=== PATIENT | male | born 1975 | race American Indian/Alaskan Native ===

== ENCOUNTER 2017-03-17 15:42 | Emergency (ER) | payer OTHER ==
[2017-03-17 15:49] VITALS: TEMP 98.2; O2SAT 100; BMI 22.1
[2017-03-17] MEDS ORDERED: Sodium Chloride 0.9% 1,000 ML IV STA (15:58)
--- NOTE | 2017-03-17 16:06 | ED PDOC ---
Arrival/HPI - General Chief Complaint: Abdominal Pain Time Seen by Provider: 03/17/17 15:58 Historian: Patient - History of Present Illness Narrative History of Present Illness (Text): 03/17/17 16:02 A 41 year old male with no significant past medical history, presents tot he emergency department with a complaint of epigastric and left sided abdominal pain with multiple episodes of non-bilious, non-bloody vomiting. The patient states that his symptoms began last night after eating a meal from a corner stone. He states that it consisted of chicken salad and fried chicken, which he then washed down with strong liquor. The patient states that he cannot pass any stools. The patient denies fevers, chills, headache, dizziness, chest pain, shortness of breath, dyspnea on exertion, cough,nausea, back pain, neck pain, urinary changes, or any other complaint. Time/Duration: Other (Last Night) Symptom Onset: Sudden Symptom Course: Unchanged Activities at Onset: Rest, Light Context: Home Past Medical History - Provider Review Nursing Documentation Reviewed: Yes - Cardiac Hx Cardiac Disorders: No - Pulmonary Hx Respiratory Disorders: No - Neurological Hx Neurological Disorder: No - HEENT Hx HEENT Disorder: No - Renal Hx Renal Disorder: No - Endocrine/Metabolic Hx Endocrine Disorders: No - Hematological/Oncological Hx Blood Disorders: No - Integumentary Hx Dermatological Disorder: No - Musculoskeletal/Rheumatological Hx Musculoskeletal Disorders: No - Gastrointestinal Hx Gastrointestinal Disorders: No - Genitourinary/Gynecological Hx Genitourinary Disorders: No - Psychiatric Hx Psychophysiologic Disorder: No Hx Depression: Yes Hx Emotional Abuse: No Hx Physical Abuse: No Hx Substance Use: Yes (CANNABIS) - Anesthesia Hx Anesthesia: No - Suicidal Assessment Feels Threatened In Home Enviroment: No Family/Social History - Physician Review Nursing Documentation Reviewed: Yes Family/Social History: No Known Family HX Smoking Status: Current Some Days Smoker Hx Alcohol Use: Yes (SOCIAL) Hx Substance Use: Yes (CANNABIS) Allergies/Home Meds Allergies/Adverse Reactions: Allergies No Known Allergies Allergy (Verified 12/08/11 11:38) Home Medications: Home Meds Medication Instructions Recorded Confirmed PARoxetine [Paxil] 5 mg PO DAILY 03/17/17 03/17/17 Review of Systems - Physician Review All systems were reviewed & negative as marked: Yes - Review of Systems Constitutional: absent: Fevers, Night Sweats Eyes: Normal ENT: absent: Sore Throat Respiratory: absent: SOB Cardiovascular: absent: Chest Pain, MOLINA Gastrointestinal: Abdominal Pain (epigastric, left sided), Stool Changes (Can not pass any stools), Vomiting (non-bilous/bloody) Genitourinary Male: absent: Urinary Output Changes Musculoskeletal: absent: Back Pain, Neck Pain Skin: Normal Neurological: absent: Headache, Dizziness Endocrine: Normal Hemo/Lymphatic: Normal Psychiatric: Normal Physical Exam Vital Signs Reviewed: Yes Vital Signs Temp Pulse Resp BP Pulse Ox 03/17/17 15:48 98.2 F 73 18 116/66 100 Temperature: Afebrile Blood Pressure: Normal Pulse: Regular Respiratory Rate: Normal Appearance: Positive for: Well-Appearing, Non-Toxic, Comfortable Pain Distress: None Mental Status: Positive for: Alert and Oriented X 3 - Systems Exam Head: Present: Atraumatic, Normocephalic Pupils: Present: PERRL Extroacular Muscles: Present: EOMI Conjunctiva: Present: Normal Mouth: Present: Moist Mucous Membranes Neck: Present: Normal Range of Motion Respiratory/Chest: Present: Clear to Auscultation, Good Air Exchange. No: Respiratory Distress, Accessory Muscle Use Cardiovascular: Present: Regular Rate and Rhythm, Normal S1, S2. No: Murmurs Abdomen: Present: Tenderness (Epigastric, supraumbilical, LUQ tenderness.). No : Normal Bowel Sounds (hyperchoic bowel sounds) Back: Present: Normal Inspection Upper Extremity: Present: Normal Inspection. No: Cyanosis, Edema Lower Extremity: Present: Normal Inspection. No: Edema Neurological: Present: GCS=15, CN II-XII Intact, Speech Normal, Motor Func Grossly Intact, Normal Sensory Function, Normal Cerebellar Funct, Norm Deep Tendon Reflexes, Gait Normal, Memory Normal, Normal 2Pt Descrimination, Other Skin: Present: Warm, Dry, Normal Color. No: Rashes Psychiatric: Present: Alert, Oriented x 3, Normal Insight, Normal Concentration Medical Decision Making ED Course and Treatment: 03/17/17 16:08 Impression: A 41 year old male presents tot he emergency department with epigastric and left sided abdominal pain and multiple episodes of non-bilious, non-bloody vomiting. Plan: -- Pepcid, Toradol, Zofran, IV Fluids -- Labs -- Reassess and disposition Prior Visits: Notes and results from previous visits were reviewed. Patient was last seen in the emergency department on 12/08/11. The patient was seen for a lower extremity injury. The patient was discharged home. Progress Notes: 03/17/17 18:36 serial bowel exasm biengn, po challenge passed/diet counsled, feling better. will be discharged on dietinstructions pepcid/reglan /pmd f/u prn - Lab Interpretations Lab Results: 03/17/17 16:40 03/17/17 16:40 Lab Results 03/17/17 16:40: Sodium 139, Potassium 3.7, Chloride 100, Carbon Dioxide 30, Anion Gap 12, BUN 14, Creatinine 1.0, Est GFR ( Amer) > 60, Est GFR (Non- Af Amer) > 60, Random Glucose 81, Calcium 9.5, Total Bilirubin 1.5 H, AST 73 H, ALT 44, Alkaline Phosphatase 71, Total Protein 7.8, Albumin 4.5, Globulin 3.2, Albumin/Globulin Ratio 1.4, Lipase 54 03/17/17 16:40: PT 12.8 H, INR 1.17 H, APTT 27.7 03/17/17 16:40: WBC 7.3, RBC 4.15, Hgb 13.8 L, Hct 40.0 L, MCV 96.4, MCH 33.3, MCHC 34.5, RDW 13.2, Plt Count 172, MPV 10.3, Gran % 69.2 H, Lymph % (Auto) 23.0 , [place] % (Auto) 7.4 H, Eos % (Auto) 0.3 L, Baso % (Auto) 0.1, Gran # 5.01, Lymph # 1.7, [place] # 0.5, Eos # 0.0, Baso # 0.01 I have reviewed the lab results: Yes - Medication Orders Current Medication Orders: Discontinued Medications Famotidine (Pepcid) 20 mg IVP STAT STA Stop: 03/17/17 15:59 Last Admin: 03/17/17 16:45 Dose: 20 mg IVP Administration Document 03/17/17 16:45 HI (Rec: 03/17/17 16:45 IN [id number]) Charges for Administration # of IVP Administrations 1 Sodium Chloride (Sodium Chloride 0.9%) 1,000 mls @ 1,000 mls/hr IV .Q1H STA Stop: 03/17/17 16:57 Last Admin: 03/17/17 16:46 Dose: 1,000 mls/hr eMAR Start Stop Document 03/17/17 16:46 HI (Rec: 03/17/17 16:46 [id number] Intravenous Solution Start Date 03/17/17 Start Time 16:46 Ketorolac Tromethamine (Toradol) 15 mg IVP STAT STA Stop: 03/17/17 16:12 Last Admin: 03/17/17 16:46 Dose: 15 mg MAR Pain Assessment Document 03/17/17 16:46 HI (Rec: 03/17/17 16:46 [id number] Pain Reassessment Is this a pain reassessment? No Sleep Is patient sleeping during reassessment? No Presence of Pain Presence of Pain Yes Location Pain Location Body Site Abdomen IVP Administration Document 03/17/17 16:46 HI (Rec: 03/17/17 16:46 [id number] Charges for Administration # of IVP Administrations 1 Ondansetron HCl (Zofran Inj) 4 mg IVP STAT STA Stop: 03/17/17 15:59 Last Admin: 03/17/17 16:46 Dose: 4 mg IVP Administration Document 03/17/17 16:46 HI (Rec: 03/17/17 16:46 [id number]) Charges for Administration # of IVP Administrations 1 - Scribe Statement The provider has reviewed the documentation as recorded by the Jennifer Eldridge Provider Scribe Attestation: All medical record entries made by the Scribe were at my direction and personally dictated by me. I have reviewed the chart and agree that the record accurately reflects my personal performance of the history, physical exam, medical decision making, and the department course for this patient. I have also personally directed, reviewed, and agree with the discharge instructions and disposition. Disposition/Present on Arrival - Present on Arrival Any Indicators Present on Arrival: No History of DVT/PE: No History of Uncontrolled Diabetes: No Urinary Catheter: No History of Decub. Ulcer: No History Surgical Site Infection Following: None - Disposition Have Diagnosis and Disposition been Completed?: Yes Diagnosis: Acute gastroenteritis Disposition: HOME/ ROUTINE Disposition Time: 18:30 Patient Plan: Discharge Patient Problems: Current Active Problems Problem Status Onset Acute gastroenteritis Acute Condition: GOOD Discharge Instructions (ExitCare): Gastroenteritis (DC), Gastroenteritis (GEN) Print Language: MARSHALLESE Additional Instructions: Please advance your diet slowly for the first 2-3 days avoid large meals/ meaty/ greasy meals/chocoalte/greasy foods/chocolate/fried foods eat simple bland foods such as bannas/cream of cereals/papaya/toast/crackers/ lots of water/lots of water/lots of water/ fluids such as herbal teas likle julisa/peppermint . and take the medicines as prescribed. Prescriptions: Famotidine [Pepcid] 20 mg PO BID PRN #20 tab PRN Reason: dysepsia Metoclopramide [Reglan] 10 mg PO Q8 PRN #10 tab PRN Reason: Nausea/Vomiting Forms: [facility] [facility] (Kiswahili)
[2017-03-17 16:57] LABS: BASO # 0.01 K/mm3 (0.0-2.0); BASO % 0.1 % (0.0-3.0); EOS % 0.3 % (1.5-5.0); GRAN # 5.01 (1.4-6.5); GRAN % 69.2 % (50.0-68.0); LYMPH # 1.7 (1.2-3.4); MEAN CELL VOLUME 96.4 fl (80.0-105.0); MEAN CORPUSCULAR HEMOGLOBIN 33.3 pg (25.0-35.0); MEAN CORPUSCULAR HGB CONC 34.5 g/dl (31.0-37.0); MEAN PLATELET VOLUME 10.3 fl (7.0-11.0); MONO # 0.5 (0.1-0.6); MONO % 7.4 % (1.0-6.0); RED CELL DISTRIBUTION WIDTH 13.2 % (11.5-14.5); WHITE BLOOD COUNT 7.3 10^3/ul (4.5-11.0)
[2017-03-17 17:02] LABS: INR 1.17 (0.93-1.08); PARTIAL THROMBOPLASTIN TIME 27.7 Seconds (25.1-36.5)
[2017-03-17 17:08] LABS: ALB/GLOB RATIO 1.4 (1.1-1.8); ALKALINE PHOSPHATASE 71 U/L (38-126); ALT/SGPT 44 U/L (7-56); AST/SGOT 73 U/L (17-59); BILIRUBIN,TOTAL 1.5 mg/dL (0.2-1.3); BLOOD UREA NITROGEN 14 mg/dL (7-21); CALCIUM 9.5 mg/dL (8.4-10.5); CARBON DIOXIDE 30 mmol/L (21-33); CHLORIDE 100 mmol/L (98-107); GFR AFRICAN-AMERICAN > 60; GLUCOSE,RANDOM 81 mg/dL (70-110); LIPASE 54 U/L (23-300); POTASSIUM 3.7 mmol/L (3.6-5.0); SODIUM 139 mmol/L (132-148); TOTAL PROTEIN 7.8 g/dL (5.8-8.3)
[2017-03-17 19:05] VITALS: BP 121/87; PULSE 72; RESP 16
== END 2017-03-17 18:57 | disposition home or self-care (01) ==
LOC: ED 15:42
DX: K52.9 Noninfective gastroenteritis and colitis, unspecified (principal)
CPT/HCPCS: 80053; 83690; 85025; 85610; 85730; 96374; 96375; 99284; J1885; J2405; J7040

== ENCOUNTER 2017-08-23 11:24 | Inpatient (IN) | payer OTHER ==
[2017-08-23 11:24] VITALS: BMI 22.1
[2017-08-23] MEDS ORDERED: Sodium Chloride 0.9% 1,000 ML IV STA ×2 (11:57→17:44)
[2017-08-23 12:15] LABS: BASO # 0.01 K/mm3 (0.0-2.0); BASO % 0.1 % (0.0-3.0); GRAN # 6.2 (1.4-6.5); HEMOGLOBIN 14.8 g/dL (14.0-18.0); LYMPH # 1.7 (1.2-3.4); LYMPH % 20.3 % (22.0-35.0); MEAN CELL VOLUME 95.1 fl (80.0-105.0); MEAN CORPUSCULAR HEMOGLOBIN 33.3 pg (25.0-35.0); MEAN PLATELET VOLUME 10.5 fl (7.0-11.0); MONO # 0.6 (0.1-0.6); MONO % 6.6 % (1.0-6.0); RBC 4.45 10^6/uL (3.5-6.1); RED CELL DISTRIBUTION WIDTH 12.9 % (11.5-14.5); WHITE BLOOD COUNT 8.5 10^3/ul (4.5-11.0)
--- NOTE | 2017-08-23 13:12 | ED PDOC ---
Arrival/HPI - General Historian: Patient - General Chief Complaint: Abdominal Pain Time Seen by Provider: 08/23/17 11:57 - History of Present Illness Narrative History of Present Illness (Text): 08/23/17 13:04 41-year-old male presents today with a 3 day history of lower abdominal pain. Patient states 3 days ago he developed pain around the umbilicus. Patient states that pain has worsened. Patient is complaining of nausea and diarrhea. Patient denies chest pain or shortness of breath. He denies urinary symptoms. pt c/o subjective fevers/chills at home. no dizziness or weakness. no sick contacts. no medications taken for pain at home. no other complaints. (Peg Liu) Past Medical History - Provider Review Nursing Documentation Reviewed: Yes - Travel History Have you recently traveled outside [place] w/in the past 3 mons?: No - Infectious Disease Hx of Infectious Diseases: None - Cardiac Hx Cardiac Disorders: No - Pulmonary Hx Respiratory Disorders: No - Neurological Hx Neurological Disorder: No - HEENT Hx HEENT Disorder: No - Renal Hx Renal Disorder: No - Endocrine/Metabolic Hx Endocrine Disorders: No - Hematological/Oncological Hx Blood Disorders: No - Integumentary Hx Dermatological Disorder: No - Musculoskeletal/Rheumatological Hx Musculoskeletal Disorders: No - Gastrointestinal Hx Gastrointestinal Disorders: No - Genitourinary/Gynecological Hx Genitourinary Disorders: No - Psychiatric Hx Psychophysiologic Disorder: No Hx Depression: Yes Hx Emotional Abuse: No Hx Physical Abuse: No Hx Substance Use: Yes (CANNABIS) - Anesthesia Hx Anesthesia: No - Suicidal Assessment Feels Threatened In Home Enviroment: No Family/Social History - Physician Review Nursing Documentation Reviewed: Yes Family/Social History: Unknown Family HX Smoking Status: Current Some Days Smoker Hx Alcohol Use: Yes (SOCIAL) Hx Substance Use: Yes (CANNABIS) Allergies/Home Meds Allergies/Adverse Reactions: Allergies No Known Allergies Allergy (Verified 12/08/11 11:38) Review of Systems - Review of Systems Constitutional: Fatigue, Fevers ENT: Sinus Congestion. absent: Sore Throat Respiratory: Cough. absent: SOB, Sputum, Wheezing Cardiovascular: absent: Chest Pain, Palpitations Gastrointestinal: Abdominal Pain, Diarrhea, Nausea, Vomiting Genitourinary Male: absent: Dysuria, Frequency, Hematuria Musculoskeletal: absent: Arthralgias, Back Pain, Neck Pain Skin: absent: Rash, Pruritis Neurological: absent: Headache, Dizziness Psychiatric: absent: Anxiety, Depression Physical Exam Vital Signs Reviewed: Yes Temperature: Afebrile Blood Pressure: Normal Pulse: Regular Respiratory Rate: Normal Appearance: Positive for: Well-Appearing, Non-Toxic, Comfortable Pain Distress: None Mental Status: Positive for: Alert and Oriented X 3 - Systems Exam Head: Present: Atraumatic Mouth: Present: Moist Mucous Membranes Neck: Present: Normal Range of Motion Respiratory/Chest: Present: Clear to Auscultation, Good Air Exchange. No: Respiratory Distress, Accessory Muscle Use Cardiovascular: Present: Regular Rate and Rhythm, Normal S1, S2. No: Murmurs Abdomen: Present: Tenderness (rlq tenderness, periumbilical tenderness), Guarding. No: Distention, Peritoneal Signs, Rebound Upper Extremity: Present: Normal ROM Lower Extremity: Present: Normal ROM Neurological: Present: GCS=15, Speech Normal Skin: Present: Warm, Dry, Normal Color. No: Rashes Psychiatric: Present: Alert, Oriented x 3 Vital Signs Temp Pulse Resp BP Pulse Ox 08/23/17 17:46 99.5 F 97 H 18 128/79 98 08/23/17 11:32 99.7 F H 92 H 18 130/86 98 Medical Decision Making Reassessment Condition: Re-examined ED Course and Treatment: 08/23/17 13:13 Patient is nontoxic well appearing with stable vital signs presenting with RLQ abdominal pain CBC wnl CMP wnl Lipase wnl Urinalysis wnl CAT scan: FINDINGS: LOWER THORAX: There is dependent atelectasis in the lung bases. LIVER: The liver is normal in size and there is homogeneous enhancement. . No gross lesion or ductal dilatation. GALLBLADDER AND BILE DUCTS: No calcified gallstones pain PANCREAS: Normal in size with homogeneous enhancement. No gross lesion or ductal dilatation. SPLEEN: Normal in size and appearance. ADRENALS: No discrete nodule. KIDNEYS AND URETERS: Normal in size with homogeneous enhancement. No hydronephrosis. No solid mass. VASCULATURE: No aortic aneurysm. BOWEL: The small bowel loops are normal in caliber. There is moderate circumferential mural thickening in the terminal ileum at the ileocecal junction. The colon is unremarkable. No bowel obstruction. APPENDIX: The appendix is not distinctly identified however there are no inflammatory changes in the right lower quadrant. PERITONEUM: There is small amount of free fluid in the pelvis. No free air. LYMPH NODES: No enlarged lymph nodes. BLADDER: Normal in appearance. REPRODUCTIVE: Unremarkable. BONES: No acute fracture. OTHER FINDINGS: None. IMPRESSION: Evaluation of the bowel is limited in the absence of oral contrast. Allowing for this, moderate circumferential mural thickening in the terminal ileum and ileocecal junction may represent nonspecific infectious/inflammatory enteritis. Crohn's disease is a consideration. Clinical correlation and follow-up is advised. No bowel obstruction. Small amount of free fluid in the pelvis, likely reactive. The appendix is not distinctly identified. No inflammatory changes in the right lower quadrant. Patient reassessment:pt non toxic well appearing; c/o chills; vitals stable. low grade fever. blood cultures pending. rocephin and flagyl started IV. lactate; 1.0 Discussed all results with patient in depth Case was discussed with Dr. galeano in depth accepts admission observational status to med/surg Impression: Abdominal pain, ileitis Admitted observational status to [facility] 08/23/17 20:11 admitting physician ordered EKG; EKg showed st elevations in v1, v2, v3. reviewed by dr. gibbs who called dr. hairston. pt denies CHEST PAIN, denies SOB. dr. hairston reviewed EKG: NO CODE HEART. repeat ekg; NSR at 66b/m, incomplete right bundle branch block , qtc 379 3rd EGK; NSR at 69b/m normal axis, junctional st depressions. trop; 0.07 case discussed with resident dr. Pena case discussed with dr. Aponte; will add ASA; upgrade patient to tele. follow serial troponins impression; abdominal pain, abnormal ekg, abnormal troponin, admit observational status to tele with cardiology consult. (Peg Liu) 08/24/17 17:59 pt seen with pa. pt admitted for abdominal pain. after admission, ekg performed with ?elevation v3. case discussed with dr hairston. not code heart candidate, pt cp free. upgraded tele (Nav Gibbs) - Lab Interpretations Microbiology Results: Microbiology Results 08/23/17 18:30 Blood Blood Culture - Preliminary NO GROWTH AFTER 3 DAYS 08/23/17 18:00 Blood Blood Culture - Preliminary NO GROWTH AFTER 3 DAYS Lab Results: 08/24/17 07:00 08/24/17 07:00 Lab Results 08/24/17 07:00: Sodium 133, Potassium 3.5 L, Chloride 100, Carbon Dioxide 27, Anion Gap 10, BUN 9, Creatinine 1.0, Est GFR ( Amer) > 60, Est GFR (Non- Af Amer) > 60, Random Glucose 94, Calcium 8.2 L, Phosphorus 3.6, Magnesium 2.2, Total Bilirubin 0.3, AST 50, ALT 33, Alkaline Phosphatase 52, Troponin I 0.89 H * D, Total Protein 6.8, Albumin 3.8, Globulin 3.1, Albumin/Globulin Ratio 1.2 08/24/17 07:00: WBC 5.6 D, RBC 3.98, Hgb 13.5 L, Hct 37.8 L, MCV 95.0, MCH 33.9 , MCHC 35.7, RDW 12.7, Plt Count 164, MPV 10.7, Gran % 61.0, Lymph % (Auto) 25.5 , [place] % (Auto) 12.8 H, Eos % (Auto) 0.5 L, Baso % (Auto) 0.2, Gran # 3.44, Lymph # (Auto) 1.4, [place] # (Auto) 0.7 H, Eos # (Auto) 0.0, Baso # (Auto) 0.01 08/23/17 23:35: Troponin I 0.20 H* D 08/23/17 18:30: Alcohol, Quantitative < 10 08/23/17 18:30: pO2 26 L, VBG pH 7.34, VBG pCO2 55.0, VBG HCO3 29.7 H, VBG Total CO2 31.4 H, VBG O2 Sat (Calc) 58.2, VBG Base Excess 2.6 H, VBG Potassium 4.1, Glucose 93, Lactate 1.0, FiO2 21.0, Sodium 133.0, Chloride 101.0, Venous Blood Potassium 4.1 08/23/17 18:30: Lactate Dehydrogenase 434, Total Creatine Kinase 499 H, CK-MB ( CK-2) 1.2, CK-MB (CK-2) % Cancelled, Troponin I 0.07 08/23/17 16:20: Urine Color Yellow, Urine Appearance Clear, Urine pH 6.0, Ur Specific [place] 1.020, Urine Protein Trace H, Urine Glucose (UA) Negative, Urine Ketones Negative, Urine Blood Negative, Urine Nitrate Negative, Urine Bilirubin Negative, Urine Urobilinogen 0.2, Ur Leukocyte Esterase Negative, Urine RBC 1 - 3, Urine WBC 2 - 5, Ur Epithelial Cells 3 - 4, Urine Bacteria Small, Urine Other Mucus 08/23/17 14:15: Sodium 135, Potassium 3.6, Chloride 100, Carbon Dioxide 27, Anion Gap 11, BUN 11, Creatinine 1.2, Est GFR ( Amer) > 60, Est GFR (Non- Af Amer) > 60, Random Glucose 95, Calcium 8.5, Total Bilirubin 0.3, AST 43, ALT 34, Alkaline Phosphatase 55, Total Protein 7.2, Albumin 4.1, Globulin 3.1, Albumin/Globulin Ratio 1.3, Lipase 105 08/23/17 12:09: WBC 8.5, RBC 4.45, Hgb 14.8, Hct 42.3, MCV 95.1, MCH 33.3, MCHC 35.0, RDW 12.9, Plt Count 175, MPV 10.5, Gran % 73.0 H, Lymph % (Auto) 20.3 L, [place] % (Auto) 6.6 H, Eos % (Auto) 0.0 L, Baso % (Auto) 0.1, Gran # 6.20, Lymph # (Auto) 1.7, [place] # (Auto) 0.6, Eos # (Auto) 0.0, Baso # (Auto) 0.01 - RAD Interpretation Radiology Orders: 08/23/17 12:24 ABD & PELVIS IV CONTRAST ONLY [CT] Stat 08/23/17 17:43 CHEST PORTABLE [RAD] Stat 08/24/17 08:49 ABDOMEN COMPLETE [US] Routine - Medication Orders Current Medication Orders: Acetaminophen (Tylenol 325mg Tab) 650 mg PO Q6H PRN PRN Reason: Fever >100.4 F Last Admin: 08/23/17 21:16 Dose: 650 mg [facility] Pain/Vitals Document 08/23/17 21:16 EQ (Rec: 08/23/17 21:17 EQ [id number]) Pain Reassessment Is This A Pain ReAssessment? No Sleep Is patient sleeping during reassessment? No Presence of Pain Presence of Pain Yes Pain Scale Used Pain Scale Used Numeric Re-Assess: [facility] Pain/Vitals Document 08/24/17 00:05 SRE (Rec: 08/24/17 04:39 SRE [id number]) Vitals Temperature (97.6 F-99.6 F) 98.5 F Temperature Source Oral Atorvastatin Calcium (Lipitor) 40 mg PO DIN [facility] Last Admin: 08/26/17 17:27 Dose: 40 mg Clopidogrel Bisulfate (Plavix) 75 mg PO DAILY [facility] Last Admin: 08/26/17 17:26 Dose: 75 mg Enoxaparin Sodium (Lovenox) 70 mg SC Q12H ANDREW PRN Reason: Protocol Last Admin: 08/27/17 08:34 Dose: 70 mg Subcutaneous Administrations Document 08/27/17 08:34 FERNANDO (Rec: 08/27/17 08:34 FERNANDO [id number]) Injection Site MAR Injection Site Right Abdomen Charges for Administration # of Subcutaneous Administrations 1 Ketorolac Tromethamine (Toradol) 30 mg IVP Q6H PRN PRN Reason: Pain, severe (8-10) Metoprolol Tartrate (Lopressor) 25 mg PO BID [facility] Last Admin: 08/26/17 17:23 Dose: Not Given Non-Admin Reason: BP Parameters Not Met MAR Pulse and Blood Pressure Document 08/26/17 17:23 MJO (Rec: 08/26/17 17:23 MJO [id number]) Pulse Pulse Rate (60-90) 66 Blood Pressure Blood Pressure (100/60-150/90) 98/60 Ondansetron HCl (Zofran Inj) 4 mg IVP Q4H PRN PRN Reason: Nausea/Vomiting Pantoprazole Sodium (Protonix Inj) 40 mg IVP DAILY [facility] Last Admin: 08/26/17 10:00 Dose: Discontinued Medications Aspirin (Aspirin) 325 mg PO STAT STA Stop: 08/23/17 19:55 Last Admin: 08/23/17 21:18 Dose: 325 mg Clopidogrel Bisulfate (Plavix) 75 mg PO DAILY [facility] Clopidogrel Bisulfate (Plavix) 300 mg PO STAT STA Stop: 08/24/17 01:53 Last Admin: 08/24/17 02:13 Dose: 300 mg Enoxaparin Sodium (Lovenox) 70 mg SC Q12H ANDREW PRN Reason: Protocol Last Admin: 08/25/17 09:27 Dose: 70 mg Subcutaneous Administrations Document 08/25/17 09:27 ARMANDO (Rec: 08/25/17 09:27 ARMANDO [id number]) Injection Site MAR Injection Site Left Abdomen Charges for Administration # of Subcutaneous Administrations 1 Sodium Chloride (Sodium Chloride 0.9%) 1,000 mls @ 999 mls/hr IV .Q1H1M STA Stop: 08/23/17 12:57 Last Admin: 08/23/17 13:10 Dose: 999 mls/hr eMAR Start Stop Document 08/23/17 13:10 EQ (Rec: 08/23/17 13:10 EQ [id number]) Intravenous Solution Start Date 08/23/17 Start Time 13:10 Sodium Chloride (Sodium Chloride 0.9%) 1,000 mls @ 999 mls/hr IV .Q1H1M STA Stop: 08/23/17 18:44 Last Admin: 08/23/17 19:13 Dose: 999 mls/hr eMAR Start Stop Document 08/23/17 19:13 EQ (Rec: 08/23/17 19:13 EQ [id number]) Intravenous Solution Start Date 08/23/17 Start Time 19:13 Sodium Chloride (Sodium Chloride 0.9%) 1,000 mls @ 100 mls/hr IV .Q10H ANDREW Last Admin: 08/26/17 19:53 Dose: Metronidazole (Flagyl) 500 mg in 100 mls @ 100 mls/hr IVPB Q8 ANDREW PRN Reason: Protocol Last Admin: 08/26/17 06:57 Dose: 100 mls/hr eMAR Start Stop Document 08/26/17 06:57 KTR (Rec: 08/26/17 06:57 [place] [facility] [id number] Intravenous Solution Start Date 08/26/17 Start Time 06:57 Ceftriaxone Sodium (Rocephin 1 Gram Ivpb) 1 gm in 100 mls @ 100 mls/hr IVPB DAILY ANDREW PRN Reason: Protocol Last Admin: 08/24/17 10:10 Dose: 100 mls/hr eMAR Start Stop Document 08/24/17 10:10 LM (Rec: 08/24/17 10:10 LM [id number]) Intravenous Solution Start Date 08/24/17 Start Time 10:10 Metronidazole (Flagyl) 500 mg in 100 mls @ 100 mls/hr IVPB STAT STA PRN Reason: Protocol Stop: 08/23/17 19:25 Last Admin: 08/23/17 19:52 Dose: 100 mls/hr eMAR Start Stop Document 08/23/17 19:52 EQ (Rec: 08/23/17 19:52 EQ [id number]) Intravenous Solution Start Date 08/23/17 Start Time 19:52 Ceftriaxone Sodium (Rocephin 1 Gram Ivpb) 1 gm in 100 mls @ 200 mls/hr IVPB STAT STA PRN Reason: Protocol Stop: 08/23/17 18:55 Last Admin: 08/23/17 19:13 Dose: 200 mls/hr eMAR Start Stop Document 08/23/17 19:13 EQ (Rec: 08/23/17 19:13 EQ [id number]) Intravenous Solution Start Date 08/23/17 Start Time 19:13 Ketorolac Tromethamine (Toradol) 30 mg IVP STAT STA Stop: 08/23/17 12:25 Last Admin: 08/23/17 13:09 Dose: 30 mg MAR Pain Assessment Document 08/23/17 13:09 EQ (Rec: 08/23/17 13:10 EQ [id number]) Pain Reassessment Is this a pain reassessment? No Sleep Is patient sleeping during reassessment? No Presence of Pain Presence of Pain Yes Pain Scale Used Pain Scale Used Numeric IVP Administration Document 08/23/17 13:09 EQ (Rec: 08/23/17 13:10 EQ [id number]) Charges for Administration # of IVP Administrations 1 Ondansetron HCl (Zofran Inj) 4 mg IVP Q4H PRN PRN Reason: Nausea/Vomiting Potassium Chloride (K-Dur 20 Meq Er Tab) 20 meq PO ONCE ONE Stop: 08/24/17 13:09 Last Admin: 08/24/17 14:51 Dose: 20 meq Disposition/Present on Arrival - Present on Arrival Any Indicators Present on Arrival: No History of DVT/PE: No History of Uncontrolled Diabetes: No Urinary Catheter: No History of Decub. Ulcer: No History Surgical Site Infection Following: None - Disposition Have Diagnosis and Disposition been Completed?: Yes Disposition Time: 20:22 Patient Plan: Observation - Disposition Diagnosis: Abdominal pain, Ileitis, Abnormal EKG Disposition: HOSPITALIZED Patient Problems: Current Active Problems Problem Status Onset Abdominal pain Acute Abnormal EKG Acute Ileitis Acute Condition: FAIR
[2017-08-23] MEDS ORDERED: Iohexol 350 MG/100 ML VIAL ONE (14:08)
[2017-08-23 14:39] LABS: ALB/GLOB RATIO 1.3 (1.1-1.8); ALBUMIN 4.1 g/dL (3.0-4.8); ALT/SGPT 34 U/L (7-56); AST/SGOT 43 U/L (17-59); BLOOD UREA NITROGEN 11 mg/dL (7-21); CALCIUM 8.5 mg/dL (8.4-10.5); GFR AFRICAN-AMERICAN > 60; GFR NON-AFRICAN AMERICAN > 60; LIPASE 105 U/L (23-300)
[2017-08-23 17:01] LABS: URINE BILIRUBIN NEGATIVE (NEGATIVE); URINE BLOOD NEGATIVE (NEGATIVE); URINE GLUCOSE (UA) NEGATIVE (NEGATIVE); URINE LEUKOCYTE ESTERASE NEGATIVE Leu/uL (NEGATIVE); URINE PROTEIN TRACE mg/dL (<30 mg/dL); URINE UROBILINOGEN 0.2 E.U./dL (<1 E.U./dL)
[2017-08-23 17:04] LABS: URINE APPEARANCE CLEAR (CLEAR); URINE COLOR YELLOW (YELLOW)
[2017-08-23 17:10] LABS: URINE BACTERIA SMALL (NEG)
--- NOTE | 2017-08-23 17:34 | CT ---
PROCEDURE: CT Abdomen and Pelvis with contrast HISTORY: Abdominal pain COMPARISON: None. TECHNIQUE: CT scan of the abdomen and pelvis was performed after administration of intravenous contrast. Oral contrast was not administered. Coronal and sagittal reformatted images were obtained. Contrast dose: 100 mL Omnipaque 350 Radiation dose: Total exam DLP = 195.72 mGy-cm. This CT exam was performed using one or more of the following dose reduction techniques: Automated exposure control, adjustment of the mA and/or kV according to patient size, and/or use of iterative reconstruction technique. FINDINGS: LOWER THORAX: There is dependent atelectasis in the lung bases. LIVER: The liver is normal in size and there is homogeneous enhancement. . No gross lesion or ductal dilatation. GALLBLADDER AND BILE DUCTS: No calcified gallstones pain PANCREAS: Normal in size with homogeneous enhancement. No gross lesion or ductal dilatation. SPLEEN: Normal in size and appearance. ADRENALS: No discrete nodule. KIDNEYS AND URETERS: Normal in size with homogeneous enhancement. No hydronephrosis. No solid mass. VASCULATURE: No aortic aneurysm. BOWEL: The small bowel loops are normal in caliber. There is moderate circumferential mural thickening in the terminal ileum at the ileocecal junction. The colon is unremarkable. No bowel obstruction. APPENDIX: The appendix is not distinctly identified however there are no inflammatory changes in the right lower quadrant. PERITONEUM: There is small amount of free fluid in the pelvis. No free air. LYMPH NODES: No enlarged lymph nodes. BLADDER: Normal in appearance. REPRODUCTIVE: Unremarkable. BONES: No acute fracture. OTHER FINDINGS: None. IMPRESSION: Evaluation of the bowel is limited in the absence of oral contrast. Allowing for this, moderate circumferential mural thickening in the terminal ileum and ileocecal junction may represent nonspecific infectious/inflammatory enteritis. Crohn's disease is a consideration. Clinical correlation and follow-up is advised. No bowel obstruction. Small amount of free fluid in the pelvis, likely reactive. The appendix is not distinctly identified. No inflammatory changes in the right lower quadrant.
--- NOTE | 2017-08-23 17:55 | CP.PCM.HP ---
<Elsa Pena - Last Filed: 08/23/17 19:33> History of Present Illness - History of Present Illness History of Present Illness: CC: "Im having abdominal pain" HPI: Patient is a 41 year old male with no significant past medical history presents to [facility] today for abdominal pain x 3 days. Patient states that he ate some chicken from a [place] corner store on Wednesday. Since then he has been experiencing lower abdominal pain with associated nausea. He also admits to feeling chills. Patient states that he has not been able to eat since Wednesday. Denies any vomiting. Last bowel movement was this morning, prior to arrival. He states that his bowel movement was loose. Patient states that this has never happened to him before. Upon review of EMR chart, patient was seen in the ED 2016 for the same complaint. At that time "his symptoms began last night after eating a meal from a corner stone. He states that it consisted of chicken salad and fried chicken, which he then washed down with strong liquor." Currently he denies fevers/chills, vomiting, headaches, dizziness, cp, palpitations, sob, urinary symptoms. Patient states that he is hungry and wants to eat. ED course: Toradol 30mg IVP, NS bolus, Rocephin 1gm Allergies: NKDA Medications: Denies Medical History: Denies Surgical History: Denies Family History: Mom-healthy, Father - healthy, Denies any history of colon cancer Social History: Smokes 1-2 cig/day since age 23, smokes marijuana occasionally, drinks 1-2 shots socially; states that he was released from [facility] in [id number] Present on Admission - Present on Admission Any Indicators Present on Admission: No Past Patient History - Infectious Disease Hx of Infectious Diseases: None - Past Social History Smoking Status: Current Some Days Smoker - CARDIAC Hx Cardiac Disorders: No - PULMONARY Hx Respiratory Disorders: No - NEUROLOGICAL Hx Neurological Disorder: No - HEENT Hx HEENT Problems: No - RENAL Hx Chronic Kidney Disease: No - ENDOCRINE/METABOLIC Hx Endocrine Disorders: No - HEMATOLOGICAL/ONCOLOGICAL Hx Blood Disorders: No - INTEGUMENTARY Hx Dermatological Problems: No - MUSCULOSKELETAL/RHEUMATOLOGICAL Hx Musculoskeletal Disorders: No - GASTROINTESTINAL Hx Gastrointestinal Disorders: No - GENITOURINARY/GYNECOLOGICAL Hx Genitourinary Disorders: No - PSYCHIATRIC Hx Psychophysiologic Disorder: No Hx Depression: Yes Hx Emotional Abuse: No Hx Physical Abuse: No Hx Substance Use: Yes (CANNABIS) - SURGICAL HISTORY Hx Surgeries: No - ANESTHESIA Hx Anesthesia: No Meds Allergies/Adverse Reactions: Allergies Allergy/AdvReac Type Severity Reaction Status Date / Time No Known Allergies Allergy Verified 12/08/11 11:38 Physical Exam - Constitutional Appears: Non-toxic, No Acute Distress - Head Exam Head Exam: ATRAUMATIC, NORMAL INSPECTION, NORMOCEPHALIC - Eye Exam Eye Exam: EOMI, Normal appearance - ENT Exam ENT Exam: Mucous Membranes Moist - Respiratory Exam Respiratory Exam: Clear to Auscultation Bilateral, NORMAL BREATHING PATTERN. absent: Rales, Rhonchi, Wheezes - Cardiovascular Exam Cardiovascular Exam: REGULAR RHYTHM, +S1, +S2 - GI/Abdominal Exam GI & Abdominal Exam: Normal Bowel Sounds, Soft. absent: Guarding, Rebound, Rigid, Tenderness - Extremities Exam Extremities exam: Positive for: normal inspection - Back Exam Back exam: NORMAL INSPECTION - Neurological Exam Neurological exam: Alert, Oriented x3 - Psychiatric Exam Psychiatric exam: Normal Affect, Normal Mood - Skin Skin Exam: Dry, Normal Color, Warm Results - Vital Signs Recent Vital Signs: Last Vital Signs Temp 99.5 F 08/23/17 17:46 Pulse 97 H 08/23/17 17:46 Resp 18 08/23/17 17:46 BP 128/79 08/23/17 17:46 Pulse Ox 98 08/23/17 17:46 - Labs Result Diagrams: 08/23/17 12:09 08/23/17 14:15 Labs: Laboratory Results - last 24 hr 08/23/17 08/23/17 08/23/17 12:09 14:15 16:20 WBC 8.5 RBC 4.45 Hgb 14.8 Hct 42.3 MCV 95.1 MCH 33.3 MCHC 35.0 RDW 12.9 Plt Count 175 MPV 10.5 Gran % 73.0 H Lymph % (Auto) 20.3 L N[place] % (Auto) 6.6 H Eos % (Auto) 0.0 L Baso % (Auto) 0.1 Gran # 6.20 Lymph # (Auto) 1.7 N[place] # (Auto) 0.6 Eos # (Auto) 0.0 Baso # (Auto) 0.01 Sodium 135 Potassium 3.6 Chloride 100 Carbon Dioxide 27 Anion Gap 11 BUN 11 Creatinine 1.2 Est GFR ( Amer) > 60 Est GFR (Non-Af Amer) > 60 Random Glucose 95 Calcium 8.5 Total Bilirubin 0.3 AST 43 ALT 34 Alkaline Phosphatase 55 Total Protein 7.2 Albumin 4.1 Globulin 3.1 Albumin/Globulin Ratio 1.3 Lipase 105 Urine Color Yellow Urine Appearance Clear Urine pH 6.0 Ur Specific [place] 1.020 Urine Protein Trace H Urine Glucose (UA) Negative Urine Ketones Negative Urine Blood Negative Urine Nitrate Negative Urine Bilirubin Negative Urine Urobilinogen 0.2 Ur Leukocyte Esterase Negative Urine RBC 1 - 3 Urine WBC 2 - 5 Ur Epithelial Cells 3 - 4 Urine Bacteria Small Urine Other Mucus Assessment & Plan - Assessment and Plan (Free Text) Assessment: Patient is a 41 year old male with no significant past medical history who presents with lower abdominal pain with associated chills, nausea, and diarrhea. CT abd/pelvis showed moderate circumferential mural thickening in the terminal ileum and ileocecal junction. Will admit to Med/surg for further management. Abdominal pain secondary to ileitis vs gastroenteritis -Stable, afebrile -CT abd/pelvis showed moderate circumferential mural thickening in the terminal ileum and ileocecal junction -Antibiotics: Rocephin 1 gm daily, Flagyl 500mg Q8H -Diet: Liquid diet -Fluids: NS @ 100cc/hour -Zofran 4mg Q4H IVP prn nausea -Tylenol 650mg q6H prn fever -GI on consult, help appreciated -Stool ova/parasites, stool cultures, fecal leukocytes ordered -F/U alcohol level, UTOX -CXR showed no active pulmonary disease -Blood cultures pending EKG changes -Initial EKG in the ED showed ST elevations (per ED PA), repeat EKG ordered -No prior EKG to compare to -Patient not complaining of chest pain at this time -First troponin 0.07, will trend q6h History Alcohol abuse ? -F/U alcohol level and UTOX -CIWA protocol GI/DVT ppx: -Protonix 40mg IVP daily -SCDs Plan discussed with Dr Luna <Jose Luna - Last Filed: 08/24/17 14:56> Results - Vital Signs Recent Vital Signs: Last Vital Signs Temp 99.7 F H 08/24/17 12:00 Pulse 79 08/24/17 12:00 Resp 18 08/24/17 12:00 BP 105/67 08/24/17 12:00 Pulse Ox 100 08/24/17 06:00 - Labs Result Diagrams: 08/24/17 07:00 08/24/17 07:00 Attending/Attestation - Attestation I have personally seen and examined this patient.: Yes I have fully participated in the care of the patient.: Yes I have reviewed all pertinent clinical information: Yes Notes (Text): 08/24/17 14:52 attending note; Patient seen and examined in ER. Patient is a 41 year old male with no significant past medical history who presents with lower abdominal pain with associated chills, nausea, and diarrhea. CT abd/pelvis showed moderate circumferential mural thickening in the terminal ileum and ileocecal junction. Patient is getting admitted for IV Antibiotics for infectious colitis. started on IV Rocephin and Flagyl. Started on clear liquid diet. GI evaluation requested. Denies any history of intermittent bowel disease. EKG ordered later showed nonspecific ST-T changes. Cardiac enzymes requested. active smoking; smoking cessation is strongly advised. Started on NicoDerm patch. Alcohol use; alcohol cessation is strongly advised. CIWA protocol ordered. Monitor the patient closely. Upon discharge the patient will follow-up with [facility] [place].
[2017-08-23] MEDS ORDERED: cefTRIAXone 1 gm 1 GM/100 ML BAG IVPB STA (18:26)
[2017-08-23] MEDS ORDERED: metroNIDAZOLE IV 500 mg/100 ml 500 MG/100 ML BAG IVPB STA (18:26)
[2017-08-23 18:53] LABS: VENOUS BLOOD GAS BASE EXCESS 2.6 mmol/L (0.0-2.0); VENOUS BLOOD GAS PO2 26 mm/Hg (30-55); VENOUS BLOOD PH 7.34 (7.32-7.43)
--- NOTE | 2017-08-23 18:55 | RAD ---
HISTORY: cough/abdominal pain COMPARISON: No prior. FINDINGS: LUNGS: The lungs are well inflated and clear. PLEURA: No significant pleural effusion identified, no pneumothorax apparent. CARDIOVASCULAR: Normal. OSSEOUS STRUCTURES: No significant abnormalities. VISUALIZED UPPER ABDOMEN: Normal. OTHER FINDINGS: None. IMPRESSION: No active pulmonary disease.
[2017-08-23 19:14] LABS: TROPONIN I 0.07 ng/mL
[2017-08-23] MEDS: Sodium Chloride 0.9% 1,000 ML IV SCH (19:14)
[2017-08-23 19:22] LABS: CK-MB 1.2 ng/mL (0.0-3.6)
[2017-08-23] MEDS: metroNIDAZOLE IV 500 mg/100 ml 500 MG/100 ML BAG IVPB SCH (22:01)
[2017-08-24] MEDS: Enoxaparin 80 mg Syringe SC SCH ×2 (02:13→14:52)
[2017-08-24] MEDS: metroNIDAZOLE IV 500 mg/100 ml 500 MG/100 ML BAG IVPB SCH ×3 (05:19→21:50)
[2017-08-24] MEDS: Sodium Chloride 0.9% 1,000 ML IV SCH ×3 (05:24→14:52)
[2017-08-24 07:50] LABS: BASO # 0.01 K/mm3 (0.0-2.0); BASO % 0.2 % (0.0-3.0); EOS % 0.5 % (1.5-5.0); GRAN # 3.44 (1.4-6.5); HEMOGLOBIN 13.5 g/dL (14.0-18.0); LYMPH # 1.4 (1.2-3.4); LYMPH % 25.5 % (22.0-35.0); MEAN CORPUSCULAR HEMOGLOBIN 33.9 pg (25.0-35.0); MEAN CORPUSCULAR HGB CONC 35.7 g/dl (31.0-37.0); MEAN PLATELET VOLUME 10.7 fl (7.0-11.0); MONO # 0.7 (0.1-0.6); MONO % 12.8 % (1.0-6.0); RBC 3.98 10^6/uL (3.5-6.1); RED CELL DISTRIBUTION WIDTH 12.7 % (11.5-14.5); WHITE BLOOD COUNT 5.6 10^3/ul (4.5-11.0)
[2017-08-24 07:59] LABS: ALB/GLOB RATIO 1.2 (1.1-1.8); ALBUMIN 3.8 g/dL (3.0-4.8); ALT/SGPT 33 U/L (7-56); AST/SGOT 50 U/L (17-59); BLOOD UREA NITROGEN 9 mg/dL (7-21); CALCIUM 8.2 mg/dL (8.4-10.5); GFR AFRICAN-AMERICAN > 60; GFR NON-AFRICAN AMERICAN > 60
[2017-08-24 08:36] LABS: TROPONIN I 0.89 ng/mL
--- NOTE | 2017-08-24 08:40 | CP.PCM.CON ---
<Alcira Dodge - Last Filed: 08/24/17 16:17> History of Present Illness - History of Present Illness History of Present Illness: GI Fellow PGY4 Consult Note This is a 41 year old male with no significant past medical history presents to [facility] today for abdominal pain sine Wednesday. Patient states that the pain started soon after eating fried chicken and chicken salad from a [place] corner store on Wednesday. Since then he has been experiencing right lower abdominal pain with associated nausea/chills but no fevers, vomiting or diarrhea. He had one watery BM this am. Patient states that he ate steak and khoa greens on Wednesday but was not able to eat much due to abdominal pain. He denies any abdominal pain associated with food consumption and no abdominal surgeries. He denies any hx of pancreatitis or alcohol abuse, states he drinks socially and smokes marijuana 102 times a month. he denies any extraintestinal manifestations or IBD, no oral ulcers, rash, joint pain, uveitis. He denies rectal bleeding, diarrhea or prior colonoscopy or endoscopy.He has acid reflux symptoms occasionally but nothing requiring him to take medication. Upon review of EMR chart, patient was seen in the ED 02/2017 for a similar complaint after eating a meal from a corner stone. In the ER pt was found to have elevated troponin and EKD changes and is currently on Lovenox and being evaluated by cardiology. He denies CP, SOB, or palpations. ROS: A 12pt ROS was negative except as above PMHx: Denies PSHx: Denies FHx: Denies any history of colon cancer or IBD SHx: Smokes 1-2 cig/day, smokes marijuana 1-2 times a month, drinks 1-2 shots 1- 2 Fridays a month, denies illicit drug use Past Patient History - Infectious Disease Hx of Infectious Diseases: None - Past Social History Smoking Status: Current Some Days Smoker - CARDIAC Hx Cardiac Disorders: No - PULMONARY Hx Respiratory Disorders: No - NEUROLOGICAL Hx Neurological Disorder: No - HEENT Hx HEENT Problems: No - RENAL Hx Chronic Kidney Disease: No - ENDOCRINE/METABOLIC Hx Endocrine Disorders: No - HEMATOLOGICAL/ONCOLOGICAL Hx Blood Disorders: No - INTEGUMENTARY Hx Dermatological Problems: No - MUSCULOSKELETAL/RHEUMATOLOGICAL Hx Musculoskeletal Disorders: No Hx Falls: No - GASTROINTESTINAL Hx Gastrointestinal Disorders: No - GENITOURINARY/GYNECOLOGICAL Hx Genitourinary Disorders: No - PSYCHIATRIC Hx Anxiety: Yes Hx Depression: Yes Hx Substance Use: Yes - SURGICAL HISTORY Hx Surgeries: No - ANESTHESIA Hx Anesthesia: No Meds Allergies/Adverse Reactions: Allergies Allergy/AdvReac Type Severity Reaction Status Date / Time No Known Allergies Allergy Verified 12/08/11 11:38 - Medications Medications: Current Medications Acetaminophen (Tylenol 325mg Tab) 650 mg PO Q6H PRN PRN Reason: Fever >100.4 F Last Admin: 08/23/17 21:16 Dose: 650 mg Atorvastatin Calcium (Lipitor) 40 mg PO DIN [facility] Last Admin: 08/24/17 02:13 Dose: 40 mg Clopidogrel Bisulfate (Plavix) 75 mg PO DAILY [facility] Enoxaparin Sodium (Lovenox) 70 mg SC Q12H [facility] PRN Reason: Protocol Last Admin: 08/24/17 02:13 Dose: 70 mg Sodium Chloride (Sodium Chloride 0.9%) 1,000 mls @ 100 mls/hr IV .Q10H [facility] Last Admin: 08/24/17 05:24 Dose: Not Given Metronidazole (Flagyl) 500 mg in 100 mls @ 100 mls/hr IVPB Q8 [facility] PRN Reason: Protocol Last Admin: 08/24/17 05:19 Dose: 100 mls/hr Ceftriaxone Sodium (Rocephin 1 Gram Ivpb) 1 gm in 100 mls @ 100 mls/hr IVPB DAILY [facility] PRN Reason: Protocol Ketorolac Tromethamine (Toradol) 30 mg IVP Q6H PRN PRN Reason: Pain, severe (8-10) Metoprolol Tartrate (Lopressor) 25 mg PO BID [facility] Last Admin: 08/24/17 02:09 Dose: 25 mg Ondansetron HCl (Zofran Inj) 4 mg IVP Q4H PRN PRN Reason: Nausea/Vomiting Pantoprazole Sodium (Protonix Inj) 40 mg IVP DAILY [facility] Physical Exam - Constitutional Appears: Non-toxic, No Acute Distress - Head Exam Head Exam: ATRAUMATIC, NORMAL INSPECTION, NORMOCEPHALIC - Eye Exam Eye Exam: EOMI, Normal appearance, PERRL Pupil Exam: PERRL - ENT Exam ENT Exam: Mucous Membranes Dry - Neck Exam Neck exam: Positive for: Normal Inspection - Respiratory Exam Respiratory Exam: Clear to Auscultation Bilateral, NORMAL BREATHING PATTERN - Cardiovascular Exam Cardiovascular Exam: REGULAR RHYTHM, RRR, +S1, +S2 - GI/Abdominal Exam GI & Abdominal Exam: Normal Bowel Sounds, Soft, Tenderness. absent: Distended, Firm, Guarding, Organomegaly, Rebound, Rigid - Rectal Exam Rectal Exam: Deferred - Extremities Exam Extremities exam: Positive for: full ROM, normal inspection - Neurological Exam Neurological exam: Alert, Oriented x3 - Psychiatric Exam Psychiatric exam: Normal Affect, Normal Mood - Skin Skin Exam: Dry, Intact, Normal Color, Warm Results - Vital Signs Recent Vital Signs: Last Vital Signs Temp 99.3 F 08/24/17 06:00 Pulse 76 08/24/17 06:00 Resp 20 08/24/17 06:00 BP 111/75 08/24/17 06:00 Pulse Ox 100 08/24/17 06:00 - Labs Result Diagrams: 08/24/17 07:00 08/24/17 07:00 Labs: Laboratory Results - last 24 hr 08/23/17 08/23/17 08/23/17 18:30 18:30 18:30 WBC RBC Hgb Hct MCV MCH MCHC RDW Plt Count MPV Gran % Lymph % (Auto) [place] % (Auto) Eos % (Auto) Baso % (Auto) Gran # Lymph # (Auto) [place] # (Auto) Eos # (Auto) Baso # (Auto) pO2 26 L VBG pH 7.34 VBG pCO2 55.0 VBG HCO3 29.7 H VBG Total CO2 31.4 H VBG O2 Sat (Calc) 58.2 VBG Base Excess 2.6 H VBG Potassium 4.1 Sodium 133.0 Chloride 101.0 Glucose 93 Lactate 1.0 FiO2 21.0 Potassium Carbon Dioxide Anion Gap BUN Creatinine Est GFR ( Amer) Est GFR (Non-Af Amer) Random Glucose Calcium Phosphorus Magnesium Total Bilirubin AST ALT Alkaline Phosphatase Lactate Dehydrogenase 434 Total Creatine Kinase 499 H CK-MB (CK-2) 1.2 CK-MB (CK-2) % Cancelled Troponin I 0.07 Total Protein Albumin Globulin Albumin/Globulin Ratio Venous Blood Potassium 4.1 Alcohol, Quantitative < 10 08/23/17 08/24/17 08/24/17 23:35 07:00 07:00 WBC 5.6 D RBC 3.98 Hgb 13.5 L Hct 37.8 L MCV 95.0 MCH 33.9 MCHC 35.7 RDW 12.7 Plt Count 164 MPV 10.7 Gran % 61.0 Lymph % (Auto) 25.5 [place] % (Auto) 12.8 H Eos % (Auto) 0.5 L Baso % (Auto) 0.2 Gran # 3.44 Lymph # (Auto) 1.4 [place] # (Auto) 0.7 H Eos # (Auto) 0.0 Baso # (Auto) 0.01 pO2 VBG pH VBG pCO2 VBG HCO3 VBG Total CO2 VBG O2 Sat (Calc) VBG Base Excess VBG Potassium Sodium 133 Chloride 100 Glucose Lactate FiO2 Potassium 3.5 L Carbon Dioxide 27 Anion Gap 10 BUN 9 Creatinine 1.0 Est GFR ( Amer) > 60 Est GFR (Non-Af Amer) > 60 Random Glucose 94 Calcium 8.2 L Phosphorus 3.6 Magnesium 2.2 Total Bilirubin 0.3 AST 50 ALT 33 Alkaline Phosphatase 52 Lactate Dehydrogenase Total Creatine Kinase CK-MB (CK-2) CK-MB (CK-2) % Troponin I 0.20 H* D Total Protein 6.8 Albumin 3.8 Globulin 3.1 Albumin/Globulin Ratio 1.2 Venous Blood Potassium Alcohol, Quantitative Assessment & Plan - Assessment and Plan (Free Text) Assessment: This is a 41yM presenting with abdominal pain after eating chicken from a corner store. 1. Abdominal pain ddx: gastroenteritis, ileitis, cholelithiasis 2. Elevated troponin Plan: -Continue supportive care with IVF hydration, anti-emetics, and pain control -Abdominal pain and CT finding of mural thickening of Terminal ileum maybe secondary to viral gastroenteritis vs food consumption, less likely IBD with no other complaints -Recommend outpt colonoscopy with CT finding -Primary team ordered stool studies to r/o infectious etiology -No fevers, WBC, no indication for abx therapy -Per GI okay to advance to clear liquid diet -Recommend Abd US to r/o gallstones -Order UDS to r/o illicit drug use as a possible etiology of abdominal pain and elevated troponin -Elevated troponin management per cardiology -Will continue to follow closely <Gonzalez Govea - Last Filed: 08/24/17 16:53> Meds - Medications Medications: Current Medications Acetaminophen (Tylenol 325mg Tab) 650 mg PO Q6H PRN PRN Reason: Fever >100.4 F Last Admin: 08/23/17 21:16 Dose: 650 mg Atorvastatin Calcium (Lipitor) 40 mg PO DIN [facility] Last Admin: 08/24/17 02:13 Dose: 40 mg Clopidogrel Bisulfate (Plavix) 75 mg PO DAILY [facility] Enoxaparin Sodium (Lovenox) 70 mg SC Q12H [facility] PRN Reason: Protocol Last Admin: 08/24/17 14:52 Dose: 70 mg Sodium Chloride (Sodium Chloride 0.9%) 1,000 mls @ 100 mls/hr IV .Q10H [facility] Last Admin: 08/24/17 14:52 Dose: Not Given Metronidazole (Flagyl) 500 mg in 100 mls @ 100 mls/hr IVPB Q8 [facility] PRN Reason: Protocol Last Admin: 08/24/17 14:51 Dose: 100 mls/hr Ketorolac Tromethamine (Toradol) 30 mg IVP Q6H PRN PRN Reason: Pain, severe (8-10) Metoprolol Tartrate (Lopressor) 25 mg PO BID [facility] Last Admin: 08/24/17 02:09 Dose: 25 mg Ondansetron HCl (Zofran Inj) 4 mg IVP Q4H PRN PRN Reason: Nausea/Vomiting Pantoprazole Sodium (Protonix Inj) 40 mg IVP DAILY [facility] Last Admin: 08/24/17 10:09 Dose: 40 mg Results - Vital Signs Recent Vital Signs: Last Vital Signs Temp 99.7 F H 08/24/17 12:00 Pulse 79 08/24/17 12:00 Resp 18 08/24/17 12:00 BP 105/67 08/24/17 12:00 Pulse Ox 100 08/24/17 06:00 - Labs Result Diagrams: 08/24/17 07:00 08/24/17 07:00 Attending/Attestation - Attestation I have personally seen and examined this patient.: Yes I have fully participated in the care of the patient.: Yes I have reviewed all pertinent clinical information: Yes Notes (Text): 08/24/17 16:52 41 year old male with abdominal pain, found to have ileitis and cholelithiasis. Abdominal pain resolved. Diet as tolerated. If persistent, consider outpatient colonoscopy. Consider cholecystectomy. Will sign off.
[2017-08-24] MEDS ORDERED: cefTRIAXone 1 gm 1 GM/100 ML BAG IVPB SCH (10:00)
--- NOTE | 2017-08-24 11:02 | CP.PCM.PN ---
<Day Delaney - Last Filed: 08/24/17 10:58> Subjective - Date & Time of Evaluation Date of Evaluation: 08/24/17 Time of Evaluation: 09:45 - Subjective Subjective: IM progress note for Dr. Luna-Day Delaney, PGY-1 Pt S & E at bedside. Pt reports abdominal pain has mostly resolved, continues to have diarrhea. Denies CP, SOB, palpitations, N & V, F & C, constipation, changes in bladder habits. Objective - Vital Signs/Intake and Output Vital Signs (last 24 hours): Temp Pulse Resp BP Pulse Ox 99.3 F 76 20 111/75 100 08/24/17 06:00 08/24/17 06:00 08/24/17 06:00 08/24/17 06:00 08/24/17 06:00 Intake and Output: 08/24/17 08/24/17 06:59 18:59 Intake Total 1370 Output Total 0 Balance 1370 - Medications Medications: Current Medications Acetaminophen (Tylenol 325mg Tab) 650 mg PO Q6H PRN PRN Reason: Fever >100.4 F Last Admin: 08/23/17 21:16 Dose: 650 mg Atorvastatin Calcium (Lipitor) 40 mg PO DIN [facility] Last Admin: 08/24/17 02:13 Dose: 40 mg Clopidogrel Bisulfate (Plavix) 75 mg PO DAILY [facility] Enoxaparin Sodium (Lovenox) 70 mg SC Q12H [facility] PRN Reason: Protocol Last Admin: 08/24/17 02:13 Dose: 70 mg Sodium Chloride (Sodium Chloride 0.9%) 1,000 mls @ 100 mls/hr IV .Q10H [facility] Last Admin: 08/24/17 08:41 Dose: 100 mls/hr Metronidazole (Flagyl) 500 mg in 100 mls @ 100 mls/hr IVPB Q8 [facility] PRN Reason: Protocol Last Admin: 08/24/17 05:19 Dose: 100 mls/hr Ceftriaxone Sodium (Rocephin 1 Gram Ivpb) 1 gm in 100 mls @ 100 mls/hr IVPB DAILY [facility] PRN Reason: Protocol Last Admin: 08/24/17 10:10 Dose: 100 mls/hr Ketorolac Tromethamine (Toradol) 30 mg IVP Q6H PRN PRN Reason: Pain, severe (8-10) Metoprolol Tartrate (Lopressor) 25 mg PO BID [facility] Last Admin: 08/24/17 02:09 Dose: 25 mg Ondansetron HCl (Zofran Inj) 4 mg IVP Q4H PRN PRN Reason: Nausea/Vomiting Pantoprazole Sodium (Protonix Inj) 40 mg IVP DAILY [facility] Last Admin: 08/24/17 10:09 Dose: 40 mg - Labs Labs: 08/24/17 07:00 08/24/17 07:00 - Constitutional Appears: Non-toxic, No Acute Distress - Head Exam Head Exam: ATRAUMATIC, NORMAL INSPECTION, NORMOCEPHALIC - Eye Exam Eye Exam: EOMI, Normal appearance - ENT Exam ENT Exam: Mucous Membranes Moist, Normal Exam - Neck Exam Neck Exam: Full ROM, Normal Inspection - Respiratory Exam Respiratory Exam: Clear to Ausculation Bilateral, NORMAL BREATHING PATTERN. absent: Chest Wall Tenderness, Rales, Rhonchi, Wheezes - Cardiovascular Exam Cardiovascular Exam: REGULAR RHYTHM, +S1, +S2 - GI/Abdominal Exam GI & Abdominal Exam: Soft, Tenderness (mild, RLQ), Normal Bowel Sounds. absent : Distended, Firm, Guarding, Rigid, Mass, Rebound - Extremities Exam Extremities Exam: Normal Inspection. absent: Pedal Edema - Neurological Exam Neurological Exam: Alert, Awake, CN II-XII Intact, Oriented x3 - Psychiatric Exam Psychiatric exam: Normal Affect, Normal Mood - Skin Skin Exam: Dry, Intact, Normal Color, Warm Assessment and Plan - Assessment and Plan (Free Text) Assessment: 41M w/no sig PMH admitted for ab pain, chills, nausea, diarrhea now with positive trops, negative cardiac symptoms Plan: Cardiac evaluation Multiple EKGs w/incomplete RBBB, some sinus dagmar, some ST changes trops trending up, 0.89 from 0.20 FU echo Lipitor Lovenox Plavix Lopressor Appreciate cards recs Ab pain - resolving CT abd/pelvis w/mod circumferential mural thickening in terminal ileum and ileocecal junction Cont Rocephin, Flagyl CLD NS@100 Zofran PRN Tylenol PRN Toradol PRN FU stool ova/parasites FU Stool cx Fu fecal leukocytes ETOH level <10 FU blood cx FU RUQ Ab U/S as per GI GI following History Alcohol abuse ? ETOH level <10 FU UDS Cont CIWA protocol until UDS results GI/DVT ppx PTX SCDs Lovenox DW attending Elaina, PGY-1 <Jose Luna - Last Filed: 08/24/17 17:34> Objective - Vital Signs/Intake and Output Vital Signs (last 24 hours): Temp Pulse Resp BP Pulse Ox 99.7 F H 79 18 105/67 100 08/24/17 12:00 08/24/17 12:00 08/24/17 12:00 08/24/17 12:00 08/24/17 06:00 Intake and Output: 08/24/17 08/24/17 06:59 18:59 Intake Total 1160 Balance 1160 - Medications Medications: Current Medications Acetaminophen (Tylenol 325mg Tab) 650 mg PO Q6H PRN PRN Reason: Fever >100.4 F Last Admin: 08/23/17 21:16 Dose: 650 mg Atorvastatin Calcium (Lipitor) 40 mg PO DIN [facility] Last Admin: 08/24/17 02:13 Dose: 40 mg Clopidogrel Bisulfate (Plavix) 75 mg PO DAILY [facility] Enoxaparin Sodium (Lovenox) 70 mg SC Q12H [facility] PRN Reason: Protocol Last Admin: 08/24/17 14:52 Dose: 70 mg Sodium Chloride (Sodium Chloride 0.9%) 1,000 mls @ 100 mls/hr IV .Q10H [facility] Last Admin: 08/24/17 14:52 Dose: Not Given Metronidazole (Flagyl) 500 mg in 100 mls @ 100 mls/hr IVPB Q8 [facility] PRN Reason: Protocol Last Admin: 08/24/17 14:51 Dose: 100 mls/hr Ketorolac Tromethamine (Toradol) 30 mg IVP Q6H PRN PRN Reason: Pain, severe (8-10) Metoprolol Tartrate (Lopressor) 25 mg PO BID [facility] Last Admin: 08/24/17 02:09 Dose: 25 mg Ondansetron HCl (Zofran Inj) 4 mg IVP Q4H PRN PRN Reason: Nausea/Vomiting Pantoprazole Sodium (Protonix Inj) 40 mg IVP DAILY [facility] Last Admin: 08/24/17 10:09 Dose: 40 mg Attending/Attestation - Attestation I have personally seen and examined this patient.: Yes I have fully participated in the care of the patient.: Yes I have reviewed all pertinent clinical information, including history, physical exam and plan: Yes Notes (Text): 08/24/17 17:32 attending note; Patient seen and examined with resident. patient currently denies any abdominal pain. Denies any nausea, vomiting. Diarrhea is improving. Patient is a 41 year old male with no significant past medical history who presents with lower abdominal pain with associated chills, nausea, and diarrhea. CT abd/pelvis showed moderate circumferential mural thickening in the terminal ileum and ileocecal junction. Started on clear liquid diet. GI evaluation appreciated. Abdominal ultrasound was negative for gallstones. EKG ordered later showed nonspecific ST-T changes. Cardiac enzymes Trending up. Currently on aspirin, Plavix. On subcutaneous Lovenox. Cardiology evaluation requested. Echocardiogram ordered. active smoking; smoking cessation is strongly advised. Started on NicoDerm patch. Alcohol use; alcohol cessation is strongly advised. monitor the patient closely in telemetry. Upon discharge the patient will follow-up with [facility] [place].
[2017-08-24] MEDS ORDERED: Potassium Chloride 20 mEq ER Tab PO ONE (13:08)
--- NOTE | 2017-08-24 14:35 | US ---
HISTORY: r/o gallstones COMPARISON: None. TECHNIQUE: Grayscale imaging was performed. FINDINGS: LIVER: Measures 17.0 cm. Normal echogenicity of the liver parenchyma. No mass. No intrahepatic bile duct dilatation. GALLBLADDER: There are no gallstones, wall thickening or pericholecystic fluid. The sonographic Burdick's sign is negative. COMMON BILE DUCT: Measures 3.6 mm. No stones. No dilatation. PANCREAS: Unremarkable as visualized. No mass. No ductal dilatation. RIGHT KIDNEY: Measures 11.1cm. Normal echogenicity. No calculus, mass, or hydronephrosis. LEFT KIDNEY: Measures 10.7cm. Normal echogenicity. No calculus, mass, or hydronephrosis. SPLEEN: Normal in size and contour. No mass. AORTA: No aneurysmal dilatation. IVC: Unremarkable. OTHER FINDINGS: None. IMPRESSION: No cholelithiasis or biliary dilatation.
--- NOTE | 2017-08-24 14:35 | CARD ---
APPROVED REPORT EXAM: Two-dimensional and M-mode echocardiogram with Doppler and color Doppler. INDICATION CARDIAC EVAL. 2D DIMENSIONS Left Atrium (2D)3.2 (1.6-4.0cm)IVSd1.1 (0.7-1.1cm) LVDd4.3 (3.9-5.9cm)PWd1.0 (0.7-1.1cm) LVDs3.1 (2.5-4.0cm)FS (%) 29.2 % LVEF (%)56.4 (>50%) M-Mode DIMENSIONS Aortic Root2.40 (2.2-3.7cm)Aortic Cusp Exc.1.50 (1.5-2.0cm) Aortic Valve AoV Peak Ixjrsode776.0cm/Margaux Peak GR.6mmHg Mitral Valve MV E Mnpkbwdg26.7cm/sMV A Qrcpjqea92.9cm/sE/A ratio1.8 TDI E/Lateral E'0.0E/Medial E'0.0 Tricuspid Valve TR Peak Famgwtsu759gd/sRAP [id number] Peak Gr.16mmHg ODTT84aoGp LEFT VENTRICLE The left ventricle is normal size. There is normal left ventricular wall thickness. The left ventricular function is normal. The left ventricular ejection fraction is within the normal range. There is normal LV segmental wall motion. The left ventricular diastolic function is normal. RIGHT VENTRICLE The right ventricle is normal size. There is normal right ventricular wall thickness. The right ventricular systolic function is normal. ATRIA The left atrium size is normal. The right atrium size is normal. AORTIC VALVE The aortic valve is normal in structure. No aortic regurgitation is present. MITRAL VALVE The mitral valve is normal in structure. There is no mitral valve regurgitation noted. There is no mitral valve stenosis. TRICUSPID VALVE The tricuspid valve is normal in structure. PULMONIC VALVE The pulmonary valve is normal in structure. GREAT VESSELS The aortic root is normal in size. The IVC collapses <50% with inspiration. PERICARDIAL EFFUSION There is no pericardial effusion. <Conclusion> The left ventricle is normal size. There is normal left ventricular wall thickness. The left ventricular function is normal. The left ventricular ejection fraction is within the normal range. There is normal LV segmental wall motion. The left ventricular diastolic function is normal.
--- NOTE | 2017-08-24 18:46 | CARD ---
APPROVED REPORT EKG Measurement Heart [id number] MI 160P63 [id number] <Conclusion> Normal sinus rhythm ? Maryellen type 3 changes Borderline ECG
--- NOTE | 2017-08-24 19:01 | CARD ---
APPROVED REPORT EKG Measurement Heart [id number] LA [id number] <Conclusion> Sinus bradycardia ? Type 3 Burgada pattern Borderline ECG
--- NOTE | 2017-08-24 19:06 | CARD ---
APPROVED REPORT EKG Measurement Heart [id number] CO 140P11 [id number] <Conclusion> Normal sinus rhythm ? Maryellen pattern Borderline ECG
--- NOTE | 2017-08-24 19:07 | CARD ---
APPROVED REPORT EKG Measurement Heart [id number] MT 146P11 [id number] <Conclusion> Normal sinus rhythm ? Maryellen pattern Borderline ECG
[2017-08-25] MEDS: Sodium Chloride 0.9% 1,000 ML IV SCH ×2 (00:14→14:55)
[2017-08-25] MEDS: metroNIDAZOLE IV 500 mg/100 ml 500 MG/100 ML BAG IVPB SCH ×3 (05:21→21:48)
[2017-08-25 07:06] LABS: BASO # 0.04 K/mm3 (0.0-2.0); BASO % 0.6 % (0.0-3.0); EOS % 0.3 % (1.5-5.0); GRAN # 4.11 (1.4-6.5); GRAN % 57.1 % (50.0-68.0); HEMOGLOBIN 12.9 g/dL (14.0-18.0); LYMPH # 1.7 (1.2-3.4); LYMPH % 23.6 % (22.0-35.0); MEAN CELL VOLUME 94.1 fl (80.0-105.0); MEAN CORPUSCULAR HEMOGLOBIN 32.9 pg (25.0-35.0); MEAN PLATELET VOLUME 9.9 fl (7.0-11.0); MONO # 1.3 (0.1-0.6); MONO % 18.4 % (1.0-6.0); RBC 3.92 10^6/uL (3.5-6.1); RED CELL DISTRIBUTION WIDTH 12.7 % (11.5-14.5); WHITE BLOOD COUNT 7.2 10^3/ul (4.5-11.0)
[2017-08-25 07:47] LABS: ALB/GLOB RATIO 1.2 (1.1-1.8); ALBUMIN 3.9 g/dL (3.0-4.8); ALT/SGPT 33 U/L (7-56); AST/SGOT 42 U/L (17-59); BLOOD UREA NITROGEN 6 mg/dL (7-21); CALCIUM 8.6 mg/dL (8.4-10.5); GFR AFRICAN-AMERICAN > 60; GFR NON-AFRICAN AMERICAN > 60; TROPONIN I 0.23 ng/mL
[2017-08-25] MEDS: Enoxaparin 80 mg Syringe SC SCH ×2 (09:27→21:49)
--- NOTE | 2017-08-25 18:26 | CP.PCM.PN ---
<Oni Christian - Last Filed: 08/25/17 18:22> Subjective - Date & Time of Evaluation Date of Evaluation: 08/25/17 Time of Evaluation: 07:50 - Subjective Subjective: IM Progress Note for Hospitalist Service Patient seen and examined at bedside. No acute events overnight. No complaints of abdominal pain today, tolerating diet. Pending Stress test tmr as per cardio, so NPO after midnight. Objective - Vital Signs/Intake and Output Vital Signs (last 24 hours): Temp Pulse Resp BP Pulse Ox 99.1 F 71 16 90/50 L 99 08/25/17 17:31 08/25/17 17:53 08/25/17 17:31 08/25/17 17:53 08/25/17 06:00 Intake and Output: 08/25/17 08/25/17 06:59 18:59 Intake Total 1920 Balance 1920 - Medications Medications: Current Medications Acetaminophen (Tylenol 325mg Tab) 650 mg PO Q6H PRN PRN Reason: Fever >100.4 F Last Admin: 08/23/17 21:16 Dose: 650 mg Atorvastatin Calcium (Lipitor) 40 mg PO DIN [facility] Last Admin: 08/25/17 17:50 Dose: 40 mg Clopidogrel Bisulfate (Plavix) 75 mg PO DAILY [facility] Last Admin: 08/25/17 09:27 Dose: 75 mg Enoxaparin Sodium (Lovenox) 70 mg SC Q12H [facility] PRN Reason: Protocol Last Admin: 08/25/17 09:27 Dose: 70 mg Sodium Chloride (Sodium Chloride 0.9%) 1,000 mls @ 100 mls/hr IV .Q10H [facility] Last Admin: 08/25/17 14:55 Dose: 100 mls/hr Metronidazole (Flagyl) 500 mg in 100 mls @ 100 mls/hr IVPB Q8 [facility] PRN Reason: Protocol Last Admin: 08/25/17 14:54 Dose: 100 mls/hr Ketorolac Tromethamine (Toradol) 30 mg IVP Q6H PRN PRN Reason: Pain, severe (8-10) Metoprolol Tartrate (Lopressor) 25 mg PO BID [facility] Last Admin: 08/25/17 17:53 Dose: Not Given Ondansetron HCl (Zofran Inj) 4 mg IVP Q4H PRN PRN Reason: Nausea/Vomiting Pantoprazole Sodium (Protonix Inj) 40 mg IVP DAILY [facility] Last Admin: 08/25/17 09:27 Dose: 40 mg - Labs Labs: 08/25/17 06:30 08/25/17 06:30 - Additional Findings Additional findings: - Constitutional Appears: Non-toxic, No Acute Distress - Head Exam Head Exam: ATRAUMATIC, NORMAL INSPECTION, NORMOCEPHALIC - Eye Exam Eye Exam: EOMI, Normal appearance - ENT Exam ENT Exam: Mucous Membranes Moist, Normal Exam - Neck Exam Neck Exam: Full ROM, Normal Inspection - Respiratory Exam Respiratory Exam: Clear to Ausculation Bilateral, NORMAL BREATHING PATTERN. absent: Chest Wall Tenderness, Rales, Rhonchi, Wheezes - Cardiovascular Exam Cardiovascular Exam: REGULAR RHYTHM, +S1, +S2 - GI/Abdominal Exam GI & Abdominal Exam: Soft, Normal Bowel Sounds. absent: Tenderness, Distended, Firm, Guarding, Rigid, Mass, Rebound - Extremities Exam Extremities Exam: Normal Inspection. absent: Pedal Edema - Neurological Exam Neurological Exam: Alert, Awake, moving all extremities spontaneously, motor appears grossly intact and equal. - Psychiatric Exam Psychiatric exam: Normal Affect, Normal Mood - Skin Skin Exam: Dry, Intact, Normal Color, Warm Assessment and Plan - Assessment and Plan (Free Text) Assessment: This is a 41 yo M who denies any significant PMH who was admitted for abdominal pain, chills, nausea, and diarrhea after eating a take out meal, suspicious for food poisoning. He was incidentally found to have elevated trops, which peaked at 0.89 (now downtrending), concerning for possible NSTEMI despite no reported cardiac symptoms from patient. Plan: 1) Elevating trops - now downtrending -Multiple EKGs w/incomplete RBBB, some sinus dagmar, some ST changes; as per Shuttle Spotter reviewing EKGs, some concern for possible Brugada syndrome -trops trending up, 0.89 from 0.20, downtrending today to 0.23 -Echo obtained, notable for EF 56%, normal ventricles and atria, no reported valvular disease -cont Lipitor, Lovenox (cleared by cardio to continue lovenox), Plavix, Lopressor -Cardio consulted, appreciate all recs; pending stress test tomorrow, NPO after midnight 2) Abd pain - resolved -CT abd/pelvis w/mod circumferential mural thickening in terminal ileum and ileocecal junction -Cont Rocephin, Flagyl -Advanced to low fat/low fiber as per GI, NPO after midnight due to pending stress test -NS@100 -continue Zofran PRN, Tylenol PRN, Toradol PRN -Ova and parasites, stool culture, and fecal leukocytes ordered, still pending collection -ETOH level <10 on admit -blood cx negative at 24 hours, continue to monitor -RUQ Abd US obtained, negative for cholelithiasis or biliary dilation -GI following, appreciate additional recs 3) History Alcohol abuse -ETOH level <10 on admission -UDS ordered, still pending -Cont CIWA protocol until UDS results, AM score 0 Dispo: Tele, pending Stress test with Cardio tomorrow FEN: Modified GI diet, NS 100cc/hr, NPO after midnight for procedure Access: Peripheral IV Consults: GI (signed off), Cardio Ppx: Protonix for GI, Lovenox for DVT Patient seen, examined, and reviewed with attending, Dr. Luna. <Jose Luna - Last Filed: 08/26/17 07:34> Objective - Vital Signs/Intake and Output Vital Signs (last 24 hours): Temp Pulse Resp BP Pulse Ox 99.0 F 69 20 93/61 L 100 08/26/17 00:01 08/26/17 00:01 08/26/17 00:01 08/26/17 00:01 08/26/17 00:01 Intake and Output: 08/26/17 08/26/17 06:59 18:59 Intake Total 240 Balance 240 - Medications Medications: Current Medications Acetaminophen (Tylenol 325mg Tab) 650 mg PO Q6H PRN PRN Reason: Fever >100.4 F Last Admin: 08/23/17 21:16 Dose: 650 mg Atorvastatin Calcium (Lipitor) 40 mg PO DIN [facility] Last Admin: 08/25/17 17:50 Dose: 40 mg Clopidogrel Bisulfate (Plavix) 75 mg PO DAILY [facility] Last Admin: 08/25/17 09:27 Dose: 75 mg Enoxaparin Sodium (Lovenox) 70 mg SC Q12H [facility] PRN Reason: Protocol Last Admin: 08/25/17 21:49 Dose: 70 mg Sodium Chloride (Sodium Chloride 0.9%) 1,000 mls @ 100 mls/hr IV .Q10H [facility] Last Admin: 08/25/17 14:55 Dose: 100 mls/hr Ketorolac Tromethamine (Toradol) 30 mg IVP Q6H PRN PRN Reason: Pain, severe (8-10) Metoprolol Tartrate (Lopressor) 25 mg PO BID [facility] Last Admin: 08/25/17 17:53 Dose: Not Given Ondansetron HCl (Zofran Inj) 4 mg IVP Q4H PRN PRN Reason: Nausea/Vomiting Pantoprazole Sodium (Protonix Inj) 40 mg IVP DAILY [facility] Last Admin: 08/25/17 09:27 Dose: 40 mg - Labs Labs: 08/26/17 05:30 08/26/17 05:30 Attending/Attestation - Attestation I have personally seen and examined this patient.: Yes I have fully participated in the care of the patient.: Yes I have reviewed all pertinent clinical information, including history, physical exam and plan: Yes Notes (Text): 08/26/17 07:32 attending note; Patient seen and examined with resident. patient currently denies any abdominal pain. Denies any nausea, vomiting. Patient is a 41 year old male with no significant past medical history who presents with lower abdominal pain with associated chills, nausea, and diarrhea. CT abd/pelvis showed moderate circumferential mural thickening in the terminal ileum and ileocecal junction. Started on clear liquid diet. GI evaluation appreciated. Abdominal ultrasound was negative for gallstones. advance as tolerated. Outpatient colonoscopy recommended. EKG ordered later showed nonspecific ST-T changes. Elevated troponin. Trending down. Currently on aspirin, Plavix. On subcutaneous Lovenox. Case discussed with facility technician in detail. Echocardiogram showed normal LV function. Plan for stress test tomorrow. active smoking; smoking cessation is strongly advised. Started on NicoDerm patch. Alcohol use; alcohol cessation is strongly advised. monitor the patient closely in telemetry. Upon discharge the patient [place] [facility] [place]
--- NOTE | 2017-08-25 18:59 | CON ---
DATE: 08/25/2017 REQUESTING PHYSICIAN: Dr. Luna. REASON FOR CONSULTATION: Elevated troponin. HISTORY OF PRESENT ILLNESS: This is a 41-year-old man who was admitted with complaints of abdominal discomfort. He states pain has been ongoing for several days and he attributes it to eating some bad food. He had one episode of diarrhea. His pain persisted and he presented to the emergency room. Initial electrocardiogram revealed sinus rhythm with an incomplete right bundle-branch block and ST-T changes in the precordial leads, which was suggestive of a Brugada syndrome. He denies any chest pain. He also denies any prior cardiac history. He has had no prior syncope or lightheadedness. He denies any family history of cardiac issues or sudden cardiac . PAST MEDICAL HISTORY: His past history is notable for the problems mentioned above. He has had gastroesophageal reflux symptoms in the past. MEDICATIONS: He took no medications at home. Upon arrival here, he has been started on Flagyl, Lipitor, metoprolol, Lovenox, Plavix, Protonix, Toradol, and IV fluids. ALLERGIES: NONE. SOCIAL HISTORY: He smokes a few cigarettes a day. He also smokes marijuana occasionally. He drinks one or two drinks per week. He denies heavy alcohol use. FAMILY HISTORY: Unremarkable for premature heart disease. REVIEW OF SYSTEMS: Ten-point review of systems is otherwise unremarkable. PHYSICAL EXAMINATION: GENERAL: He is a thin middle-aged man. VITAL SIGNS: His blood pressure is 110/70 with a pulse of 70, in sinus; respirations are 16. His current temperature is 99. Recent temperature was 100.1. HEENT: Head: Normocephalic, atraumatic. NECK: Supple. No JVD noted. CHEST: A few scattered rhonchi heard. HEART: PMI in normal position. No pathologic murmur, rubs, or gallops noted. ABDOMEN: Soft, currently nontender with normoactive bowel sounds. EXTREMITIES: No clubbing, cyanosis, or edema. SKIN: Warm and dry. PSYCHIATRIC: Normal mood and affect. NEUROLOGIC: Alert and oriented x3. No gross motor or sensory deficits appreciable. DIAGNOSTICS DATA: White count 7.2, hemoglobin and hematocrit of 12.9 and 36.9 with a platelet count of 165,000. Potassium 3.9, BUN and creatinine are 6 and 1. Initial troponin is 0.07, repeat is 0.2, follow up 0.89, and repeat is 0.23. Chest x-ray reveals normal cardiac silhouette with clear lung torres. Electrocardiogram reveals sinus rhythm with an incomplete right bundle-branch block pattern. Echocardiogram was read as normal. IMPRESSION AND PLAN: 1. Elevated troponin with no evidence of symptomatic cardiac ischemia, possibly due to stress of illness. Only risk factor appears to be occasional tobacco abuse. 2. Abnormal electrocardiogram, appears mostly consistent with a incomplete right bundle-branch block pattern. Repeat study will be performed as well. 3. GI evaluation is in progress. We will continue to follow along and make further recommendations based upon his clinical course and results of the above evaluation. Thank your for this consultation. Mani Collado MD
[2017-08-26 06:40] LABS: BASO # 0.04 K/mm3 (0.0-2.0); BASO % 0.6 % (0.0-3.0); EOS % 0.4 % (1.5-5.0); GRAN # 3.83 (1.4-6.5); GRAN % 54.2 % (50.0-68.0); HEMOGLOBIN 13.4 g/dL (14.0-18.0); LYMPH # 2.3 (1.2-3.4); LYMPH % 32.9 % (22.0-35.0); MEAN CELL VOLUME 94.5 fl (80.0-105.0); MEAN CORPUSCULAR HEMOGLOBIN 33.3 pg (25.0-35.0); MEAN CORPUSCULAR HGB CONC 35.3 g/dl (31.0-37.0); MONO # 0.8 (0.1-0.6); MONO % 11.9 % (1.0-6.0); RBC 4.02 10^6/uL (3.5-6.1); RED CELL DISTRIBUTION WIDTH 12.7 % (11.5-14.5); WHITE BLOOD COUNT 7.1 10^3/ul (4.5-11.0)
[2017-08-26] MEDS: metroNIDAZOLE IV 500 mg/100 ml 500 MG/100 ML BAG IVPB SCH (06:57)
--- NOTE | 2017-08-26 07:44 | CP.PCM.PN ---
Subjective - Date & Time of Evaluation Date of Evaluation: 08/26/17 Time of Evaluation: 07:00 - Subjective Subjective: Stable on 2R. No cp or SOB V/S noted. RSR. PE: Lungs: clear Cor.: S1S2 Abd.: soft Ext.: no edema Neuro.: alert Labs noted. ECGs noted Echo noted: Nl LV fx. Objective - Vital Signs/Intake and Output Vital Signs (last 24 hours): Temp Pulse Resp BP Pulse Ox 99.0 F 69 20 93/61 L 100 08/26/17 00:01 08/26/17 00:01 08/26/17 00:01 08/26/17 00:01 08/26/17 00:01 Intake and Output: 08/26/17 08/26/17 06:59 18:59 Intake Total 240 Balance 240 - Medications Medications: Current Medications Acetaminophen (Tylenol 325mg Tab) 650 mg PO Q6H PRN PRN Reason: Fever >100.4 F Last Admin: 08/23/17 21:16 Dose: 650 mg Atorvastatin Calcium (Lipitor) 40 mg PO DIN [facility] Last Admin: 08/25/17 17:50 Dose: 40 mg Clopidogrel Bisulfate (Plavix) 75 mg PO DAILY [facility] Last Admin: 08/25/17 09:27 Dose: 75 mg Enoxaparin Sodium (Lovenox) 70 mg SC Q12H [facility] PRN Reason: Protocol Last Admin: 08/25/17 21:49 Dose: 70 mg Sodium Chloride (Sodium Chloride 0.9%) 1,000 mls @ 100 mls/hr IV .Q10H [facility] Last Admin: 08/25/17 14:55 Dose: 100 mls/hr Ketorolac Tromethamine (Toradol) 30 mg IVP Q6H PRN PRN Reason: Pain, severe (8-10) Metoprolol Tartrate (Lopressor) 25 mg PO BID [facility] Last Admin: 08/25/17 17:53 Dose: Not Given Ondansetron HCl (Zofran Inj) 4 mg IVP Q4H PRN PRN Reason: Nausea/Vomiting Pantoprazole Sodium (Protonix Inj) 40 mg IVP DAILY [facility] Last Admin: 08/25/17 09:27 Dose: 40 mg - Labs Labs: 08/26/17 05:30 08/26/17 05:30 Assessment and Plan - Assessment and Plan (Free Text) Assessment: Abd. Pain + trops Abn. ECG: Possible Brugada Syndrome GERD Smoker Plan: Nuclear stress test today. EP Evaluation. As per GI, Medical Team
[2017-08-26 07:52] LABS: ALB/GLOB RATIO 1.2 (1.1-1.8); ALT/SGPT 29 U/L (7-56); AST/SGOT 39 U/L (17-59); BLOOD UREA NITROGEN 7 mg/dL (7-21); GFR AFRICAN-AMERICAN > 60; GFR NON-AFRICAN AMERICAN > 60; TROPONIN I 0.12 ng/mL
[2017-08-26] MEDS: Enoxaparin 80 mg Syringe SC SCH ×2 (09:00→21:11)
--- NOTE | 2017-08-26 16:20 | CP.PCM.PN ---
<Oni Christian - Last Filed: 08/26/17 16:17> Subjective - Date & Time of Evaluation Date of Evaluation: 08/26/17 Time of Evaluation: 09:30 - Subjective Subjective: IM Progress Note for Hospitalist Service Patient seen and examined at bedside. No acute events overnight. S/p Stress test this AM, eating breakfast at time of exam. Denies chest pain, shortness of breath, syncope/near-syncope during test or at rest, additional denies any more abdominal pain or nausea. Objective - Vital Signs/Intake and Output Vital Signs (last 24 hours): Temp Pulse Resp BP Pulse Ox 98.6 F 66 18 99/61 L 98 08/26/17 11:59 08/26/17 11:59 08/26/17 11:59 08/26/17 11:59 08/26/17 06:00 Intake and Output: 08/26/17 08/26/17 06:59 18:59 Intake Total 900 Output Total 5 Balance 895 - Medications Medications: Current Medications Acetaminophen (Tylenol 325mg Tab) 650 mg PO Q6H PRN PRN Reason: Fever >100.4 F Last Admin: 08/23/17 21:16 Dose: 650 mg Atorvastatin Calcium (Lipitor) 40 mg PO DIN REPLACED BY [facility] Last Admin: 08/25/17 17:50 Dose: 40 mg Clopidogrel Bisulfate (Plavix) 75 mg PO DAILY REPLACED BY [facility] Last Admin: 08/25/17 09:27 Dose: 75 mg Enoxaparin Sodium (Lovenox) 70 mg SC Q12H REPLACED BY [facility] PRN Reason: Protocol Last Admin: 08/26/17 09:00 Dose: Not Given Sodium Chloride (Sodium Chloride 0.9%) 1,000 mls @ 100 mls/hr IV .Q10H REPLACED BY [facility] Last Admin: 08/25/17 14:55 Dose: 100 mls/hr Ketorolac Tromethamine (Toradol) 30 mg IVP Q6H PRN PRN Reason: Pain, severe (8-10) Metoprolol Tartrate (Lopressor) 25 mg PO BID REPLACED BY [facility] Last Admin: 08/26/17 11:50 Dose: Not Given Ondansetron HCl (Zofran Inj) 4 mg IVP Q4H PRN PRN Reason: Nausea/Vomiting Pantoprazole Sodium (Protonix Inj) 40 mg IVP DAILY REPLACED BY [facility] Last Admin: 08/26/17 10:00 Dose: Not Given - Labs Labs: 08/26/17 05:30 08/26/17 05:30 - Additional Findings Additional findings: - Constitutional Appears: Non-toxic, No Acute Distress - Head Exam Head Exam: ATRAUMATIC, NORMAL INSPECTION, NORMOCEPHALIC - Eye Exam Eye Exam: EOMI, Normal appearance - ENT Exam ENT Exam: Mucous Membranes Moist, Normal Exam - Neck Exam Neck Exam: Full ROM, Normal Inspection - Respiratory Exam Respiratory Exam: Clear to Ausculation Bilateral, NORMAL BREATHING PATTERN. absent: Chest Wall Tenderness, Rales, Rhonchi, Wheezes - Cardiovascular Exam Cardiovascular Exam: REGULAR RHYTHM, +S1, +S2 - GI/Abdominal Exam GI & Abdominal Exam: Soft, Normal Bowel Sounds. absent: Tenderness, Distended, Firm, Guarding, Rigid, Mass, Rebound - Extremities Exam Extremities Exam: Normal Inspection. absent: Pedal Edema - Neurological Exam Neurological Exam: Alert, Awake, moving all extremities spontaneously, motor appears grossly intact and equal. - Psychiatric Exam Psychiatric exam: Normal Affect, Normal Mood - Skin Skin Exam: Dry, Intact, Normal Color, Warm Assessment and Plan - Assessment and Plan (Free Text) Assessment: This is a 41 yo M who denies any significant PMH who was admitted for abdominal pain, chills, nausea, and diarrhea after eating a take out meal, suspicious for food poisoning. He was incidentally found to have elevated trops, which peaked at 0.89 (now downtrending), concerning for possible NSTEMI despite no reported cardiac symptoms from patient. Plan: 1) Elevating trops - now downtrending -Multiple EKGs w/incomplete RBBB, some sinus dagmar, some ST changes; as per Welding Teacher reviewing EKGs, some concern for possible Brugada syndrome -trops trending up, 0.89 from 0.20, downtrending today to 0.23 -Echo obtained, notable for EF 56%, normal ventricles and atria, no reported valvular disease -cont Lipitor, Lovenox (cleared by cardio to continue lovenox), Plavix, Lopressor -Cardio consulted, appreciate all recs; s/p stress test, test nml, pending Nuclear stress results 2) Abd pain - resolved -CT abd/pelvis w/mod circumferential mural thickening in terminal ileum and ileocecal junction -Cont Rocephin, Flagyl -Advanced to low fat/low fiber as per GI, NPO after midnight due to pending stress test -NS@100 -continue Zofran PRN, Tylenol PRN, Toradol PRN -Ova and parasites, stool culture, and fecal leukocytes ordered, still pending collection -ETOH level <10 on admit -blood cx negative at 24 hours, continue to monitor -RUQ Abd US obtained, negative for cholelithiasis or biliary dilation -GI signed off; pt instructed to follow up outpt for colonoscopy if GI sx persist 3) History Alcohol abuse -ETOH level <10 on admission -UDS ordered, still pending -Cont CIWA protocol until UDS results, AM score still 0 Dispo: Tele, s/p stress test, pending nuclear stress results, pending poss d/c tmr if nuclear stress results normal FEN: Modified GI diet, NS 100cc/hr Access: Peripheral IV Consults: GI (signed off), Cardio Ppx: Protonix for GI, Lovenox for DVT Patient seen, examined, and reviewed with attending, Dr. Luna. <Jose Luna - Last Filed: 08/26/17 17:51> Objective - Vital Signs/Intake and Output Vital Signs (last 24 hours): Temp Pulse Resp BP Pulse Ox 98.6 F 66 18 99/61 L 98 08/26/17 11:59 08/26/17 11:59 08/26/17 11:59 08/26/17 11:59 08/26/17 06:00 Intake and Output: 08/26/17 08/26/17 06:59 18:59 Intake Total 900 Output Total 5 Balance 895 - Medications Medications: Current Medications Acetaminophen (Tylenol 325mg Tab) 650 mg PO Q6H PRN PRN Reason: Fever >100.4 F Last Admin: 08/23/17 21:16 Dose: 650 mg Atorvastatin Calcium (Lipitor) 40 mg PO DIN REPLACED BY [facility] Last Admin: 08/25/17 17:50 Dose: 40 mg Clopidogrel Bisulfate (Plavix) 75 mg PO DAILY REPLACED BY [facility] Last Admin: 08/25/17 09:27 Dose: 75 mg Enoxaparin Sodium (Lovenox) 70 mg SC Q12H REPLACED BY [facility] PRN Reason: Protocol Last Admin: 08/26/17 09:00 Dose: Not Given Ketorolac Tromethamine (Toradol) 30 mg IVP Q6H PRN PRN Reason: Pain, severe (8-10) Metoprolol Tartrate (Lopressor) 25 mg PO BID REPLACED BY [facility] Last Admin: 08/26/17 11:50 Dose: Not Given Ondansetron HCl (Zofran Inj) 4 mg IVP Q4H PRN PRN Reason: Nausea/Vomiting Pantoprazole Sodium (Protonix Inj) 40 mg IVP DAILY REPLACED BY [facility] Last Admin: 08/26/17 10:00 Dose: Not Given - Labs Labs: 08/26/17 05:30 08/26/17 05:30 Attending/Attestation - Attestation I have personally seen and examined this patient.: Yes I have fully participated in the care of the patient.: Yes I have reviewed all pertinent clinical information, including history, physical exam and plan: Yes Notes (Text): 08/26/17 16:49 attending note; Patient seen and examined with resident. status post stress test today. Patient is a 41 year old male with no significant past medical history who presents with lower abdominal pain with associated chills, nausea, and diarrhea. CT abd/pelvis showed moderate circumferential mural thickening in the terminal ileum and ileocecal junction. currently tolerating diet. No abdominal pain. GI evaluation appreciated. Abdominal ultrasound was negative for gallstones. Outpatient colonoscopy recommended. EKG ordered later showed nonspecific ST-T changes. possible Brugada syndrome. Elevated troponin. Trending down. Currently on aspirin, Plavix. On subcutaneous Lovenox. Case discussed with public area attendant in detail. Echocardiogram showed normal LV function. EP evaluation requested. monitor the patient closely in telemetry. Upon discharge the patient will follow-up with [facility]. 08/26/17 17:50
[2017-08-26] MEDS: Sodium Chloride 0.9% 1,000 ML IV SCH (19:53)
--- NOTE | 2017-08-26 22:11 | CARD ---
APPROVED REPORT Protocol: JORGE Test Type: Sestamibi Stress Test Attending Physician: Dr. Ventura Morillo Referring Physician: Dr. Dr. Luna Test Indications: Abdominal pain and + trops. Height:5 ft 9 in Weight:141lbs Medications: tylenol, lipitor, plavix, lovenox, toradol, lopressor, flagyl, zofran, protonix, Medical History: 41 y/o male with abdominal pain and and + trops. Target HR: 177 bpm Resting ECG: RSR Resting Heart Rate: 71 bpm Resting Blood Pressure: 110/66mmHg Submaximum (85%): 150 bpm POST EXERCISE Reason for Termination: Leg Fatigue Target HR: No Max HR: 151 bpm 85% of Maximum Predicted HR: 177 bpm Exercise duration: 14:01 min:sec, 0 Stage Exercise capacity: 15.9METs Max Blood Pressure: 142/80mmHg Blood Pressure response to exercise: Normal Heart Rate response to exercise: Normal Chest Pain: No, None Angina index: 0 Arrhythmia: No, None ST Change: No, None Deviation: 0 mm INTERPRETATION Stress EKG Conclusion: Symptom limited stress test which was negative for chest pain, ischemia and arrhythmia. Normal functional capacity. Nuclear scans pending. Signed by Ventura Morillo Electronically Approved: 08/26/2017 13:08:53 EXAM: Myocardial Perfusion REST/STRESS Stress Test Type: Exercise Treadmill Imaging Protocol Rest Spect myocardial perfusion imaging was performed in supine position 50 minutes following the injection of 10.3 mCi of Tc-99 Myoview. At peak stress, the patient was injected intravenously with 30.7mCi of Tc-99 tetrofosmin after an exercise time of 14 minutes and 01 seconds. Gated Stress Spect was performed 65 minutes after intravenous Tc-99 Myoview injection. The images were gated to evaluate regional wall motion and calculate ventricular ejection fraction.Images were reconstructed using backfilter projection method in short horizontal and verticle long axis. Spect slices were generated. LV Perfusion The quality of the study is good. The left ventricle is within normal limits in size. The right ventricle is unremarkable. The lung uptake is normal. The distribution of tracer reveals mildly to moderately decreased perfusion in the inferior wall on the stress study. The remainder of the LV myocardium is unremarkable. The rest myocardial perfusion study shows no significant change. Wall Motion Wall motion study shows borderline normal contractility of the left ventricle. LVEF = 47 %. Conclusion 1. Probably normal SPECT myocardial perfusion study. 2. Fixed, inferior defect is most likely due to diaphrgmatic attenuation. 3. Borderline normal gated wall motion of the left ventricle.
--- NOTE | 2017-08-26 22:36 | CARD ---
APPROVED REPORT EKG Measurement Heart [id number] AR 140P-3 [id number] <Conclusion> Normal sinus rhythm RSR' or QR pattern in V1 suggests right ventricular conduction delay Borderline ECG
[2017-08-26 23:31] VITALS: RESP 18
[2017-08-27 06:31] VITALS: O2SAT 100
[2017-08-27 07:10] LABS: BASO # 0.05 K/mm3 (0.0-2.0); BASO % 0.8 % (0.0-3.0); EOS # 0.1 (0.0-0.7); EOS % 1.4 % (1.5-5.0); GRAN # 3.02 (1.4-6.5); GRAN % 47.2 % (50.0-68.0); HEMOGLOBIN 14.6 g/dL (14.0-18.0); LYMPH # 2.7 (1.2-3.4); LYMPH % 42.2 % (22.0-35.0); MEAN CELL VOLUME 93.9 fl (80.0-105.0); MEAN CORPUSCULAR HEMOGLOBIN 32.8 pg (25.0-35.0); MEAN CORPUSCULAR HGB CONC 34.9 g/dl (31.0-37.0); MEAN PLATELET VOLUME 9.7 fl (7.0-11.0); MONO # 0.5 (0.1-0.6); MONO % 8.4 % (1.0-6.0); RBC 4.45 10^6/uL (3.5-6.1); RED CELL DISTRIBUTION WIDTH 12.5 % (11.5-14.5); WHITE BLOOD COUNT 6.4 10^3/ul (4.5-11.0)
[2017-08-27 07:46] LABS: ALB/GLOB RATIO 1.2 (1.1-1.8); ALBUMIN 4.6 g/dL (3.0-4.8); ALT/SGPT 30 U/L (7-56); AST/SGOT 60 U/L (17-59); BLOOD UREA NITROGEN 11 mg/dL (7-21); CALCIUM 9.7 mg/dL (8.4-10.5); GFR AFRICAN-AMERICAN > 60; GFR NON-AFRICAN AMERICAN > 60
[2017-08-27] MEDS: Enoxaparin 80 mg Syringe SC SCH (08:34)
[2017-08-27] MEDS ORDERED: Pantoprazole 40 mg EC Tab PO SCH (10:00)
[2017-08-27 11:14] VITALS: BP 108/67; PULSE 67
[2017-08-27 11:43] VITALS: TEMP 98.8
--- NOTE | 2017-08-27 13:33 | CP.PCM.DIS ---
<Day Delaney - Last Filed: 08/27/17 13:31> Provider - Provider Date of Admission: 08/24/17 13:30 Attending physician: Jose Luna MD Primary care physician: Jeremy Consults: cardiology GI EP Time Spent in preparation of Discharge (in minutes): 35 Diagnosis - Discharge Diagnosis (1) Elevated troponin Status: Acute Hospital Course - Lab Results Lab Results: Most Recent Lab Values WBC 6.4 10^3/ul (4.5-11.0) 08/27/17 06:00 RBC 4.45 10^6/uL (3.5-6.1) 08/27/17 06:00 Hgb 14.6 g/dL (14.0-18.0) 08/27/17 06:00 Hct 41.8 % (42.0-52.0) L 08/27/17 06:00 MCV 93.9 fl (80.0-105.0) 08/27/17 06:00 MCH 32.8 pg (25.0-35.0) 08/27/17 06:00 MCHC 34.9 g/dl (31.0-37.0) 08/27/17 06:00 RDW 12.5 % (11.5-14.5) 08/27/17 06:00 Plt Count 222 10^3/uL (120.0-450.0) 08/27/17 06:00 MPV 9.7 fl (7.0-11.0) 08/27/17 06:00 Gran % 47.2 % (50.0-68.0) L 08/27/17 06:00 Lymph % (Auto) 42.2 % (22.0-35.0) H 08/27/17 06:00 [place] % (Auto) 8.4 % (1.0-6.0) H 08/27/17 06:00 Eos % (Auto) 1.4 % (1.5-5.0) L 08/27/17 06:00 Baso % (Auto) 0.8 % (0.0-3.0) 08/27/17 06:00 Gran # 3.02 (1.4-6.5) 08/27/17 06:00 Lymph # (Auto) 2.7 (1.2-3.4) 08/27/17 06:00 [place] # (Auto) 0.5 (0.1-0.6) 08/27/17 06:00 Eos # (Auto) 0.1 (0.0-0.7) 08/27/17 06:00 Baso # (Auto) 0.05 K/mm3 (0.0-2.0) 08/27/17 06:00 pO2 26 mm/Hg (30-55) L 08/23/17 18:30 VBG pH 7.34 (7.32-7.43) 08/23/17 18:30 VBG pCO2 55.0 (40-60) 08/23/17 18:30 VBG HCO3 29.7 mmol/l (21-28) H 08/23/17 18:30 VBG Total CO2 31.4 mmol.L (22-28) H 08/23/17 18:30 VBG O2 Sat (Calc) 58.2 % (40-65) 08/23/17 18:30 VBG Base Excess 2.6 mmol/L (0.0-2.0) H 08/23/17 18:30 VBG Potassium 4.1 mmol/L (3.6-5.2) 08/23/17 18:30 Sodium 133.0 mmol/L (132-148) 08/23/17 18:30 Chloride 101.0 mmol/L (98-107) 08/23/17 18:30 Glucose 93 mg/dl (75-110) 08/23/17 18:30 Lactate 1.0 mmol/L (0.7-2.1) 08/23/17 18:30 FiO2 21.0 % 08/23/17 18:30 Sodium 137 mmol/L (132-148) 08/27/17 06:00 Potassium 4.1 mmol/L (3.6-5.0) 08/27/17 06:00 Chloride 99 mmol/L (98-107) 08/27/17 06:00 Carbon Dioxide 25 mmol/L (21-33) 08/27/17 06:00 Anion Gap 17 (10-20) 08/27/17 06:00 BUN 11 mg/dL (7-21) 08/27/17 06:00 Creatinine 1.0 mg/dl (0.8-1.5) 08/27/17 06:00 Est GFR ( Amer) > 60 08/27/17 06:00 Est GFR (Non-Af Amer) > 60 08/27/17 06:00 Random Glucose 110 mg/dL (70-110) 08/27/17 06:00 Calcium 9.7 mg/dL (8.4-10.5) 08/27/17 06:00 Phosphorus 4.9 mg/dL (2.5-4.5) H 08/27/17 06:00 Magnesium 2.0 mg/dL (1.7-2.2) 08/27/17 06:00 Total Bilirubin 0.4 mg/dL (0.2-1.3) 08/27/17 06:00 AST 60 U/L (17-59) H D 08/27/17 06:00 ALT 30 U/L (7-56) 08/27/17 06:00 Alkaline Phosphatase 79 U/L (38-126) 08/27/17 06:00 Lactate Dehydrogenase 393 U/L (333-699) 08/26/17 05:30 Total Creatine Kinase 215 U/L (35-230) 08/26/17 05:30 CK-MB (CK-2) 1.2 ng/mL (0.0-3.6) 08/23/17 18:30 CK-MB (CK-2) % Cancelled 08/23/17 18:30 Troponin I 0.12 ng/mL D 08/26/17 05:30 Total Protein 8.3 g/dL (5.8-8.3) 08/27/17 06:00 Albumin 4.6 g/dL (3.0-4.8) 08/27/17 06:00 Globulin 3.7 gm/dL 08/27/17 06:00 Albumin/Globulin Ratio 1.2 (1.1-1.8) 08/27/17 06:00 Lipase 105 U/L (23-300) 08/23/17 14:15 Venous Blood Potassium 4.1 mmol/L (3.6-5.2) 08/23/17 18:30 Urine Color Yellow (YELLOW) 08/23/17 16:20 Urine Appearance Clear (CLEAR) 08/23/17 16:20 Urine pH 6.0 (4.7-8.0) 08/23/17 16:20 Ur Specific [place] 1.020 (1.005-1.035) 08/23/17 16:20 Urine Protein Trace mg/dL (<30 mg/dL) H 08/23/17 16:20 Urine Glucose (UA) Negative mg/dL (NEGATIVE) 08/23/17 16:20 Urine Ketones Negative mg/dL (NEGATIVE) 08/23/17 16:20 Urine Blood Negative (NEGATIVE) 08/23/17 16:20 Urine Nitrate Negative (NEGATIVE) 08/23/17 16:20 Urine Bilirubin Negative (NEGATIVE) 08/23/17 16:20 Urine Urobilinogen 0.2 E.U./dL (<1 E.U./dL) 08/23/17 16:20 Ur Leukocyte Esterase Negative Darci/uL (NEGATIVE) 08/23/17 16:20 Urine RBC 1 - 3 /hpf (0-2) 08/23/17 16:20 Urine WBC 2 - 5 /hpf (0-6) 08/23/17 16:20 Ur Epithelial Cells 3 - 4 /hpf (0-5) 08/23/17 16:20 Urine Bacteria Small (NEG) 08/23/17 16:20 Urine Other Mucus 08/23/17 16:20 Alcohol, Quantitative < 10 mg/dL (0-10) 08/23/17 18:30 - Hospital Course Hospital Course: 41M with no sig PMH admitted for ab pain x 3 days with nausea, anorexia, loose BMs. GI saw/evaluated pt w/recs for oupatient colonoscopy, diagnoses of ilieitis based on CT abdomen findings and R/O gallstones- Ab U/S negative. Work up included troponins, 2nd set was low positive. Cardiology consulted with recommendations for Electrophysiology evalution and stress testing. Patient with incomplete right bundle branch block on multiple EKGS.Pt was seen/ evaluted by banking specialist with instructions to return to hospital if symptomatic. Stress test normal. Pt admitted to tobacco use- smoking cessation education was rendered. Hospital day 3 pt was stable, abdominal pain had resolved and pt was instructed on symptoms he should be aware of and to return to hospital if needed. Diagnoses: abdominal pain Positive trops Anormal EKG - Date & Time of H&P Date of H&P: 08/23/17 Time of H&P: 17:54 Discharge Exam - Head Exam Head Exam: ATRAUMATIC, NORMAL INSPECTION, NORMOCEPHALIC - Eye Exam Eye Exam: EOMI, Normal appearance - ENT Exam ENT Exam: Mucous Membranes Moist, Normal Exam - Neck Exam Neck exam: Full Rom, Normal Inspection - Respiratory Exam Respiratory Exam: Clear to PA & Lateral, NORMAL BREATHING PATTERN, UNREMARKABLE - Cardiovascular Exam Cardiovascular Exam: REGULAR RHYTHM, +S1, +S2 - GI/Abdominal Exam GI & Abdominal Exam: Normal Bowel Sounds, Soft, Unremarkable. absent: Tenderness - Extremities Exam Extremities exam: normal inspection - Neurological Exam Neurological exam: Alert, CN II-XII Intact, Oriented x3 - Psychiatric Exam Psychiatric exam: Normal Affect, Normal Mood - Skin Skin Exam: Dry, Intact, Normal Color, Warm Discharge Plan - Discharge Medications Prescriptions: Aspirin [Adult Low Dose Aspirin EC] 81 mg PO DAILY #30 tablet. Atorvastatin [Lipitor] 40 mg PO DIN #30 tab Metoprolol Tartrate [Lopressor] 25 mg PO BID #60 tab - Follow Up Plan Condition: STABLE Disposition: HOME/ ROUTINE Instructions: Sudden Cardiac Arrest, Angina, Cardiac Stress Test, Myocardial Perfusion Imaging, Heart Healthy Diet, Acute Abdomen (Belly Pain), Adult (DC), Back Exercises, Diet and Health, Troponin Test, Butter, Margarine, and Cooking Oils, Dietary Fats, Acute Abdominal Pain (DC), Acute Abdominal Pain (GEN) Additional Instructions: Please take all medications as prescribed. Please call and make an appointment with the [facility] for primary care follow up. If you have chest pain , feel short of breath, have excessive sweating, or palpitations, please go to a hospital right away. Referrals: [facility] at [facility] [place] [Outside] Carlyle Bhakta MD [Staff Provider] - Gonzalez Govea MD [Staff Provider] - <Jose Luna - Last Filed: 08/27/17 16:53> Provider - Provider Date of Admission: 08/24/17 13:30 Attending physician: Jose Luna MD Hospital Course - Lab Results Lab Results: Most Recent Lab Values WBC 6.4 10^3/ul (4.5-11.0) 08/27/17 06:00 RBC 4.45 10^6/uL (3.5-6.1) 08/27/17 06:00 Hgb 14.6 g/dL (14.0-18.0) 08/27/17 06:00 Hct 41.8 % (42.0-52.0) L 08/27/17 06:00 MCV 93.9 fl (80.0-105.0) 08/27/17 06:00 MCH 32.8 pg (25.0-35.0) 08/27/17 06:00 MCHC 34.9 g/dl (31.0-37.0) 08/27/17 06:00 RDW 12.5 % (11.5-14.5) 08/27/17 06:00 Plt Count 222 10^3/uL (120.0-450.0) 08/27/17 06:00 MPV 9.7 fl (7.0-11.0) 08/27/17 06:00 Gran % 47.2 % (50.0-68.0) L 08/27/17 06:00 Lymph % (Auto) 42.2 % (22.0-35.0) H 08/27/17 06:00 [place] % (Auto) 8.4 % (1.0-6.0) H 08/27/17 06:00 Eos % (Auto) 1.4 % (1.5-5.0) L 08/27/17 06:00 Baso % (Auto) 0.8 % (0.0-3.0) 08/27/17 06:00 Gran # 3.02 (1.4-6.5) 08/27/17 06:00 Lymph # (Auto) 2.7 (1.2-3.4) 08/27/17 06:00 [place] # (Auto) 0.5 (0.1-0.6) 08/27/17 06:00 Eos # (Auto) 0.1 (0.0-0.7) 08/27/17 06:00 Baso # (Auto) 0.05 K/mm3 (0.0-2.0) 08/27/17 06:00 pO2 26 mm/Hg (30-55) L 08/23/17 18:30 VBG pH 7.34 (7.32-7.43) 08/23/17 18:30 VBG pCO2 55.0 (40-60) 08/23/17 18:30 VBG HCO3 29.7 mmol/l (21-28) H 08/23/17 18:30 VBG Total CO2 31.4 mmol.L (22-28) H 08/23/17 18:30 VBG O2 Sat (Calc) 58.2 % (40-65) 08/23/17 18:30 VBG Base Excess 2.6 mmol/L (0.0-2.0) H 08/23/17 18:30 VBG Potassium 4.1 mmol/L (3.6-5.2) 08/23/17 18:30 Sodium 133.0 mmol/L (132-148) 08/23/17 18:30 Chloride 101.0 mmol/L (98-107) 08/23/17 18:30 Glucose 93 mg/dl (75-110) 08/23/17 18:30 Lactate 1.0 mmol/L (0.7-2.1) 08/23/17 18:30 FiO2 21.0 % 08/23/17 18:30 Sodium 137 mmol/L (132-148) 08/27/17 06:00 Potassium 4.1 mmol/L (3.6-5.0) 08/27/17 06:00 Chloride 99 mmol/L (98-107) 08/27/17 06:00 Carbon Dioxide 25 mmol/L (21-33) 08/27/17 06:00 Anion Gap 17 (10-20) 08/27/17 06:00 BUN 11 mg/dL (7-21) 08/27/17 06:00 Creatinine 1.0 mg/dl (0.8-1.5) 08/27/17 06:00 Est GFR ( Amer) > 60 08/27/17 06:00 Est GFR (Non-Af Amer) > 60 08/27/17 06:00 Random Glucose 110 mg/dL (70-110) 08/27/17 06:00 Calcium 9.7 mg/dL (8.4-10.5) 08/27/17 06:00 Phosphorus 4.9 mg/dL (2.5-4.5) H 08/27/17 06:00 Magnesium 2.0 mg/dL (1.7-2.2) 08/27/17 06:00 Total Bilirubin 0.4 mg/dL (0.2-1.3) 08/27/17 06:00 AST 60 U/L (17-59) H D 08/27/17 06:00 ALT 30 U/L (7-56) 08/27/17 06:00 Alkaline Phosphatase 79 U/L (38-126) 08/27/17 06:00 Lactate Dehydrogenase 393 U/L (333-699) 08/26/17 05:30 Total Creatine Kinase 215 U/L (35-230) 08/26/17 05:30 CK-MB (CK-2) 1.2 ng/mL (0.0-3.6) 08/23/17 18:30 CK-MB (CK-2) % Cancelled 08/23/17 18:30 Troponin I 0.12 ng/mL D 08/26/17 05:30 Total Protein 8.3 g/dL (5.8-8.3) 08/27/17 06:00 Albumin 4.6 g/dL (3.0-4.8) 08/27/17 06:00 Globulin 3.7 gm/dL 08/27/17 06:00 Albumin/Globulin Ratio 1.2 (1.1-1.8) 08/27/17 06:00 Lipase 105 U/L (23-300) 08/23/17 14:15 Venous Blood Potassium 4.1 mmol/L (3.6-5.2) 08/23/17 18:30 Urine Color Yellow (YELLOW) 08/23/17 16:20 Urine Appearance Clear (CLEAR) 08/23/17 16:20 Urine pH 6.0 (4.7-8.0) 08/23/17 16:20 Ur Specific [place] 1.020 (1.005-1.035) 08/23/17 16:20 Urine Protein Trace mg/dL (<30 mg/dL) H 08/23/17 16:20 Urine Glucose (UA) Negative mg/dL (NEGATIVE) 08/23/17 16:20 Urine Ketones Negative mg/dL (NEGATIVE) 08/23/17 16:20 Urine Blood Negative (NEGATIVE) 08/23/17 16:20 Urine Nitrate Negative (NEGATIVE) 08/23/17 16:20 Urine Bilirubin Negative (NEGATIVE) 08/23/17 16:20 Urine Urobilinogen 0.2 E.U./dL (<1 E.U./dL) 08/23/17 16:20 Ur Leukocyte Esterase Negative Darci/uL (NEGATIVE) 08/23/17 16:20 Urine RBC 1 - 3 /hpf (0-2) 08/23/17 16:20 Urine WBC 2 - 5 /hpf (0-6) 08/23/17 16:20 Ur Epithelial Cells 3 - 4 /hpf (0-5) 08/23/17 16:20 Urine Bacteria Small (NEG) 08/23/17 16:20 Urine Other Mucus 08/23/17 16:20 Alcohol, Quantitative < 10 mg/dL (0-10) 08/23/17 18:30 Attending/Attestation - Attestation I have personally seen and examined this patient.: Yes I have fully participated in the care of the patient.: Yes I have reviewed all pertinent clinical information, including history, physical exam and plan: Yes Notes (Text): 08/27/17 16:50 attending note; Patient seen and examined with resident. Patient is a 41 year old male with no significant past medical history who presents with lower abdominal pain with associated chills, nausea, and diarrhea. CT abd/pelvis showed moderate circumferential mural thickening in the terminal ileum and ileocecal junction. currently tolerating diet. No abdominal pain. GI evaluation appreciated. Abdominal ultrasound was negative for gallstones. Outpatient colonoscopy recommended. EKG ordered later showed nonspecific ST-T changes. possible Brugada syndrome. Elevated troponin. Trending down. treated with aspirin, Plavix. On subcutaneous Lovenox. stress test is normal. Case discussed with cross tie turner in detail. Echocardiogram showed normal LV function. case discussed with EP Dr. Yonny Tadeo in detail. Patient can follow up as outpatient. Upon discharge the patient will follow-up with [facility]. discharge the patient home today.
--- NOTE | 2017-08-30 08:25 | CON ---
DATE: 08/27/2017INPATIENT ELECTROPHYSIOLOGY CONSULTATION REASON FOR EVALUATION 1. Abnormal EKG, rule out Brugada. 2. Coronary artery disease. 3. Atherosclerotic heart disease. 4. Hypotension. HISTORY OF PRESENT ILLNESS: Mr. Favio Bloom is a 41-year-old -Irish male without significant past medical history, who presents to emergency department with abdominal discomfort, nausea, and fatigue. The patient one day prior to admission, which is 08/24/2017, had been in his usual state of health, had eaten some hot wings that did not taste quite right. Afterwards, the patient had abdominal pain, diarrhea, symptoms persisted, therefore, he presented to the emergency department for further evaluation and management. The patient underwent inpatient workup, was found to have an abnormal EKG with an incomplete right-bundle branch block type pattern in the anterior precordial leads. In addition, the patient was found to have low level troponins. The patient was seen by the general Cardiology service, Dr. Collado, Dr. Morillo, underwent exercise stress test as well as 2D echocardiogram, both of which were within normal limits. I have been asked to see him in regards to this abnormal EKG and to comment on whether Brugada-type pattern was present. Patient was otherwise well. He has never seen a case repairer. He has never had syncope. He is relatively active. He is able to walk fair great distances without any limitations. He works in a factory making shoes. No issues in terms of effort and tolerance. PAST MEDICAL HISTORY: Not significant. MEDICATIONS: The patient had been on no medications at home. ALLERGIES: NONE. SOCIAL HISTORY: The patient does smoke few cigarettes per day. Smokes marijuana occasionally. He drinks 1 to 2 beers per week. Denies any heavy alcohol use. His occupation is as previously mentioned. FAMILY HISTORY: Negative for premature coronary artery disease or sudden cardiac . First-degree relatives are alive and well.. REVIEW OF SYSTEMS: A 12-point review of systems has been performed, all pertinent positives that are mentioned in history of present illness. PHYSICAL EXAMINATION VITAL SIGNS: On examination, temperature is 98, pulse rate of 76, blood pressure is 95/56, previously 108/57, mean arterial pressure of 59, and respirations of 18. GENERAL: He is a thin, relatively well appearing -Irish male in no acute distress, able to speak in complete sentences. HEENT: His head is normocephalic and atraumatic. There is no steven facial asymmetry. NECK: Supple. No jugular venous distention. No carotid bruit. CHEST: Clear to auscultation bilaterally. CARDIOVASCULAR: Regular rate and rhythm. S1 and S2. No S3 or S4. ABDOMEN: Soft, nontender, nondistended. Positive bowel sounds. EXTREMITIES: No cyanosis, clubbing, or edema. Peripheral pulses are intact and symmetric in bilateral upper and lower extremities. LABORATORY DATA: On review of relevant lab work, the patient has currently, a white count of 6.4, H and H of 14.6 and 41.8, platelets of 222. Sodium is 137, potassium is 4.1, chloride of 99, CO2 of 25, BUN and creatinine of 11 and 1. ALT and AST is 60 and 30 respectively. Alkaline phosphatase of 79. The patient with initial troponin at 0.20, followed by 0.89, followed by 0.23. All EKGs have been reviewed with findings of normal sinus rhythm. There is an incomplete right bundle-branch block type pattern, less than [address] elevation. Certain EKG still has Brugada type 2 type pattern, that is a saddleback-type pattern. The patient did undergo exercise Treadmill stress test in which the patient was able to undergo Harrison protocol exercising for 40 minutes without any evidence of ischemia. ASSESSMENT AND PLAN 1. Abnormal EKG with an incomplete right bundle-branch type pattern. There is less than [address] elevation morphology, however, is more consistently a type 2 pattern, which is felt to be more of a benign-type pattern. That being said, the patient denies any history of malignant syncope, palpitations. There is no first-degree relatives who had sudden cardiac . At this point, this is more an EKG finding than a clinically relevant finding. In the setting of mild troponin increase, it is unclear of this connection. I have advised him as far as the findings and recommendation, that at this point, we will continue to watch him carefully without having him undergo electrophysiology study or sodium-channel florentin infusion in the form of procainamide or ajmaline challenge. At this point, from an electrophysiologic standpoint, the patient may be discharged. 2. Coronary artery disease, atherosclerotic heart disease. The patient underwent nuclear stress test which I believe was negative for ischemia. The patient has excellent functional status. 3. Nausea, vomiting, diarrhea of unclear cause. Patient either have been dehydrated or hypotension developing in low level troponin spell. Thank you for allowing me to participate in the care of your patient. Please do not hesitate to call for any questions in regards to his care. Carlyle Bhakta MD cc: Mani Collado MD; Dr. Luna.
== END 2017-08-27 17:16 | disposition home or self-care (01) | DRG 814 ==
LOC: ED 11:24 → ERH 18:19 → 2RSO 21:25 → OBSVTOIN 08-24 13:30
PROVIDERS: ADMIT Internal Medicine; ATTEND Internal Medicine
DX: K52.9 Noninfective gastroenteritis and colitis, unspecified (principal); I49.8 Other specified cardiac arrhythmias; I45.10 Unspecified right bundle-branch block; K21.9 Gastro-esophageal reflux disease without esophagitis; I25.10 Atherosclerotic heart disease of native coronary artery without angina pectoris; E86.0 Dehydration; I95.9 Hypotension, unspecified; F10.10 Alcohol abuse, uncomplicated; F17.210 Nicotine dependence, cigarettes, uncomplicated; F12.90 Cannabis use, unspecified, uncomplicated; R74.8 Abnormal levels of other serum enzymes; Y90.0 Blood alcohol level of less than 20 mg/100 ml; Z79.82 Long term (current) use of aspirin

== ENCOUNTER 2018-04-28 10:03 | Emergency (ER) | payer MEDICAID, OTHER ==
[2018-04-28 10:04] VITALS: BMI 22.1
[2018-04-28] MEDS ORDERED: Sodium Chloride 0.9% 1,000 ML IV STA (10:23)
--- NOTE | 2018-04-28 10:34 | ED PDOC ---
Arrival/HPI - General Chief Complaint: Chest Pain Time Seen by Provider: 04/28/18 10:11 Historian: Patient - History of Present Illness Narrative History of Present Illness (Text): 04/28/18 10:26 42 year old male with past medical history of HTN, hyperlipidemia, and irregular heartbeat presents to the emergency department complaining of chest pain and cough. Patient reports a cough for the past week and states he developed sub sternal chest pain yesterday which he describes as a burning sensation. Patient informs taking motrin without any significant improvement. Patient reports associated sore throat, generalized myalgias, subjective fevers, and green sputum. Patient denies any chills, headache, dizziness, shortness of breath, dyspnea on exertion, abdominal pain, nausea, vomiting, diarrhea, back pain, neck pain, or any other complaints. Time/Duration: 24 hours Symptom Onset: Gradual Symptom Course: Unchanged Activities at Onset: Light Context: Home Past Medical History - Provider Review Nursing Documentation Reviewed: Yes - Travel History Have you recently traveled outside [place] w/in the past 3 mons?: No - Infectious Disease Hx of Infectious Diseases: None - Cardiac Hx Cardiac Disorders: No Hx Hypertension: Yes Other/Comment: heart condition - Pulmonary Hx Respiratory Disorders: No - Neurological Hx Neurological Disorder: No - HEENT Hx HEENT Disorder: No - Renal Hx Renal Disorder: No - Endocrine/Metabolic Hx Endocrine Disorders: No - Hematological/Oncological Hx Blood Disorders: No - Integumentary Hx Dermatological Disorder: No - Musculoskeletal/Rheumatological Hx Musculoskeletal Disorders: No Hx Falls: No - Gastrointestinal Hx Gastrointestinal Disorders: No - Genitourinary/Gynecological Hx Genitourinary Disorders: No - Psychiatric Hx Anxiety: Yes Hx Depression: Yes Hx Substance Use: Yes - Anesthesia Hx Anesthesia: No - Suicidal Assessment Feels Threatened In Home Enviroment: No Family/Social History - Physician Review Nursing Documentation Reviewed: Yes Family/Social History: Unknown Family HX Smoking Status: Current Some Days Smoker Hx Alcohol Use: Yes Hx Substance Use: Yes Allergies/Home Meds Allergies/Adverse Reactions: Allergies No Known Allergies Allergy (Verified 12/08/11 11:38) Review of Systems - Physician Review All systems were reviewed & negative as marked: Yes - Review of Systems Constitutional: Fatigue, Fevers (subjective) ENT: Sore Throat, Sinus Congestion. absent: Epistaxis Respiratory: Cough, Sputum (green color ). absent: SOB Cardiovascular: Chest Pain (substernal). absent: Palpitations Gastrointestinal: absent: Abdominal Pain, Constipation, Diarrhea, Nausea, Vomiting Genitourinary Male: absent: Dysuria, Frequency, Hematuria, Urinary Output Changes Musculoskeletal: Myalgias (generalized). absent: Back Pain, Neck Pain Skin: absent: Rash, Pruritis Neurological: absent: Headache, Dizziness Psychiatric: absent: Anxiety, Depression Physical Exam Vital Signs Reviewed: Yes Vital Signs Temp Pulse Resp BP Pulse Ox 04/28/18 10:04 98 F 76 18 139/80 96 Temperature: Afebrile Blood Pressure: Normal Pulse: Regular Respiratory Rate: Normal Appearance: Positive for: Well-Appearing, Non-Toxic, Comfortable Pain Distress: None Mental Status: Positive for: Alert and Oriented X 3 - Systems Exam Head: Present: Atraumatic, Normocephalic Conjunctiva: Present: Normal Ears: Present: Normal, NORMAL TM Mouth: Present: Moist Mucous Membranes Pharnyx: Present: Normal. No: ERYTHEMA, EXUDATE Nose (External): Present: Atraumatic Nose (Internal): Present: Normal Inspection Neck: Present: Normal Range of Motion Respiratory/Chest: Present: Clear to Auscultation, Good Air Exchange. No: Respiratory Distress, Accessory Muscle Use Cardiovascular: Present: Regular Rate and Rhythm, Normal S1, S2. No: Murmurs Abdomen: No: Tenderness, Distention, Peritoneal Signs, Rebound, Guarding Upper Extremity: Present: Normal Inspection, Normal ROM. No: Cyanosis, Edema Lower Extremity: Present: Normal Inspection, Normal ROM. No: Edema Neurological: Present: GCS=15, Speech Normal Skin: Present: Warm, Dry, Normal Color. No: Rashes Psychiatric: Present: Alert, Oriented x 3 Medical Decision Making ED Course and Treatment: 04/28/18 10:38 Impression: 42 year old male presents to the emergency department complaining of chest pain and cough. Plan: -- EKG -- Labs -- Chest X-ray -- IV Fluids -- Toradol -- Rapid Flu A/B -- UA -- Reassess and disposition Prior Visits: Notes and results from previous visits were reviewed. Progress Notes: cbc;wnl cmp; wnl ekg; NSR at 78b/m no st elevations, RBBB cxr; no infiltrate rapid flu negative trop; wnl 04/28/18 12:23 pt reassessment; pt feeling better after medications; vitals stable. will d/c home to follow up with PMd. impression; flu like illness increase fluids motrin every 6 hours as needed for pain/fever reduction follow up with the primary care physician within the next 2 days. return immediately if symptoms worsen,persist or if new symptoms develop. Reassessment Condition: Re-examined, Improved - RAD Interpretation Radiology Orders: 04/28/18 10:12 CHEST PORTABLE [RAD] Stat - Medication Orders Current Medication Orders: Sodium Chloride (Sodium Chloride 0.9%) 1,000 mls @ 999 mls/hr IV .Q1H1M STA Stop: 04/28/18 11:23 Ketorolac Tromethamine (Toradol) 30 mg IVP STAT STA Stop: 04/28/18 10:24 - Scribe Statement The provider has reviewed the documentation as recorded by the Scribe Earlene drummond with Nancy All medical record entries made by the Scribe were at my direction and personally dictated by me. I have reviewed the chart and agree that the record accurately reflects my personal performance of the history, physical exam, medical decision making, and the department course for this patient. I have also personally directed, reviewed, and agree with the discharge instructions and disposition. Disposition/Present on Arrival - Present on Arrival Any Indicators Present on Arrival: No History of DVT/PE: No History of Uncontrolled Diabetes: No Urinary Catheter: No History of Decub. Ulcer: No History Surgical Site Infection Following: None - Disposition Have Diagnosis and Disposition been Completed?: Yes Diagnosis: Influenza-like illness Disposition: HOME/ ROUTINE Disposition Time: 12:25 Patient Plan: Discharge Condition: GOOD Discharge Instructions (ExitCare): Viral Syndrome (DC) Additional Instructions: increase fluids motrin every 6 hours as needed for pain/fever reduction follow up with the primary care physician within the next 2 days. return immediately if symptoms worsen,persist or if new symptoms develop. Prescriptions: Ibuprofen [Motrin] 600 mg PO Q6H PRN #20 tab PRN Reason: pain/fever reduction Referrals: Niki Titus MD [Medical Doctor] - Follow up with primary [facility] [Outside] - Follow up with primary Forms: [employer] (Indonesian), WORK NOTE
[2018-04-28 10:43] LABS: BASO # 0.01 K/mm3 (0.0-2.0); BASO % 0.2 % (0.0-3.0); EOS % 0.5 % (1.5-5.0); GRAN # 4.03 (1.4-6.5); GRAN % 65.7 % (50.0-68.0); HEMOGLOBIN 13.9 g/dL (14.0-18.0); LYMPH # 1.4 (1.2-3.4); LYMPH % 22.7 % (22.0-35.0); MEAN CELL VOLUME 96.6 fl (80.0-105.0); MEAN CORPUSCULAR HEMOGLOBIN 33.7 pg (25.0-35.0); MEAN CORPUSCULAR HGB CONC 34.9 g/dl (31.0-37.0); MEAN PLATELET VOLUME 9.6 fl (7.0-11.0); MONO # 0.7 (0.1-0.6); MONO % 10.9 % (1.0-6.0); RBC 4.12 10^6/uL (3.5-6.1); RED CELL DISTRIBUTION WIDTH 13.4 % (11.5-14.5); WHITE BLOOD COUNT 6.1 10^3/uL (4.5-11.0)
[2018-04-28 10:54] LABS: ALB/GLOB RATIO 1.4 (1.1-1.8); ALBUMIN 4.9 g/dL (3.0-4.8); ALT/SGPT 43 U/L (7-56); AST/SGOT 57 U/L (17-59); BLOOD UREA NITROGEN 7 mg/dL (7-21); CALCIUM 9.7 mg/dL (8.4-10.5); GFR NON-AFRICAN AMERICAN > 60; LIPASE 59 U/L (23-300)
[2018-04-28 11:05] LABS: TROPONIN I < 0.01 ng/mL
[2018-04-28 11:12] LABS: CK-MB 2.4 ng/mL (0.0-3.6)
--- NOTE | 2018-04-28 11:22 | RAD ---
Date of service: 04/28/2018 HISTORY: CP COMPARISON: 08/23/2017. FINDINGS: LUNGS: The lungs are well inflated and clear. PLEURA: No pleural effusions or pneumothorax. CARDIOVASCULAR: The heart is normal in size. No aortic atherosclerotic calcification present. OSSEOUS STRUCTURES: Within normal limits for the patient's age. VISUALIZED UPPER ABDOMEN: Normal. OTHER FINDINGS: None. IMPRESSION: No active pulmonary disease.
[2018-04-28 11:43] LABS: URINE APPEARANCE CLEAR (CLEAR); URINE BILIRUBIN NEGATIVE (NEGATIVE); URINE BLOOD NEGATIVE (NEGATIVE); URINE COLOR YELLOW (YELLOW); URINE GLUCOSE (UA) NEGATIVE (NEGATIVE); URINE LEUKOCYTE ESTERASE NEGATIVE Leu/uL (NEGATIVE); URINE PROTEIN NEGATIVE mg/dL (<30 mg/dL); URINE UROBILINOGEN 0.2 E.U./dL (<1 E.U./dL)
[2018-04-28 12:59] VITALS: BP 107/60; PULSE 81; RESP 18; TEMP 98.4; O2SAT 98
--- NOTE | 2018-04-28 17:25 | CARD ---
APPROVED REPORT Date of service: 04/28/2018 EKG Measurement Heart [id number] <Conclusion> Normal sinus rhythm Incomplete right bundle branch block Borderline ECG
== END 2018-04-28 13:00 | disposition home or self-care (01) ==
LOC: ED 10:03
DX: J11.1 Influenza due to unidentified influenza virus with other respiratory manifestations (principal); I10 Essential (primary) hypertension; F17.210 Nicotine dependence, cigarettes, uncomplicated
CPT/HCPCS: 71045; 80053; 81003; 82550; 82553; 83615; 83690; 83735; 84484; 85025; 87804; 93005; 96361; 96374; 99283; J1885; J7030